=== PATIENT | male | born 1960 | race Caucasian/White ===

== ENCOUNTER 2020-11-03 13:18 | Emergency (ER) | payer OTHER, SELFPAY ==
--- NOTE | 2020-11-03 13:36 | ECG_ITS ---
Test Reason : SEIZURE Blood Pressure : / mmHG Vent. Rate : 077 BPM Atrial Rate : 077 BPM P-R Int : 192 ms QRS Dur : 082 ms QT Int : 370 ms P-R-T Axes : 051 037 040 degrees QTc Int : 418 ms Normal sinus rhythm Normal ECG When compared with ECG of 21-NOV-2017 10:41, No significant change was found Referred By: Robin Gonzalez Electronically Signed By:Oscar Pappas
[2020-11-03 13:50] VITALS: BP 137/92; PULSE 70; RESP 14; TEMP 36.6; O2SAT 95; BMI 26.9
--- NOTE | 2020-11-03 14:06 | CT_ITS ---
EXAMINATION: CTA OF THE HEAD AND NECK CLINICAL INFORMATION: Left leg weakness after seizure. COMPARISON: CT angiogram from 11/20/2017. TECHNIQUE: Test bolus sequences followed by intravenous administration 85 mL of Omnipaque 350. Helical imaging was performed in the axial plane from the mediastinum to the skull vertex. Delayed postcontrast imaging of the head was also performed. The data was processed at the chief technologist's workstation for generation of MIP sequences. Three-dimensional volume rendered reformatted images were also generated at an offline 3-D workstation. Stenoses are assessed in accordance with NASCET criteria unless otherwise indicated. This CT examination was performed using dose optimization techniques as appropriate, variously including the following: *Automated exposure control *Adjustment of mA and/or kV according to patient size (this includes techniques or standardized protocols for targeted exams where dose is matched to indication/reason for exam; i.e. extremities or head) *Use of iterative reconstruction technique DLP: 1808 mGy-cm. FINDINGS: CTA neck: The imaged aortic arch and origins of the great vessels are patent. The common carotid arteries are widely patent. Mild scattered atherosclerotic wall calcifications visible. The carotid bifurcations are otherwise normal. The cervical internal carotid arteries are normal in caliber. The vertebral arteries opacify normally and are of normal caliber. The soft tissues of the neck are unremarkable. Retention cyst again visible in the right maxillary antrum. The imaged portions of the lungs are clear. CTA head: The intradural vertebral arteries and basilar artery are normal. The posterior cerebral arteries are widely patent. The internal carotid arteries are of normal caliber. The JASKARAN and MCA vascular complexes bilaterally are normal. The venous sinuses opacify normally. No abnormal parenchymal or leptomeningeal enhancement. CT/CT angio head neck stroke IMPRESSION: Normal CT angiogram of the head and neck. Imaging findings reported to SENA Gonzalez at 2:48 PM on 11/03/2020.
--- NOTE | 2020-11-03 14:06 | CT_ITS ---
EXAMINATION: CT HEAD WITHOUT CONTRAST (STROKE PROTOCOL) CLINICAL INFORMATION: Stroke protocol. Left leg weakness after seizure. COMPARISON: None TECHNIQUE: Contiguous axial imaging was performed from the skull base to vertex without intravenous administration of contrast. This CT examination was performed using dose optimization techniques as appropriate, variously including the following: *Automated exposure control *Adjustment of mA and/or kV according to patient size (this includes techniques or standardized protocols for targeted exams where dose is matched to indication/reason for exam; i.e. extremities or head) *Use of iterative reconstruction technique DLP: 783 mGy-cm FINDINGS: There is no intracranial hemorrhage, hematoma, or extra-axial fluid collection. The ventricles are normal in size. There is no hydrocephalus, edema, or mass effect. The meek-white matter differentiation appears symmetric. There is no acute infarct or mass lesion. The calvarium appears intact. There is no pneumocephalus or orbital emphysema. There is a moderate-sized polyp or retention cyst right maxillary sinus. Rest of the paranasal sinuses and mastoid air cells are well-aerated. There is no scalp soft tissue abnormality seen. No calvarial fracture seen. CT/CT head for stroke IMPRESSION: No acute intracranial process seen. Moderate-sized polyp or retention cyst right maxillary sinus. Results called to Dr. Carlos Kelly in ED by phone at 2:24 PM.
--- NOTE | 2020-11-03 14:07 | ED.SEIZURE ---
HPI - Seizure General Chief Complaint: Seizure Stated Complaint: seizure Time Seen by Provider: 11/03/20 14:06 Source: patient Mode of arrival: ambulatory Limitations: no limitations History of Present Illness HPI Narrative: Patient presents to ED for seizure. Patient had a witnessed seizure at home around 01:00 o'clock. Patient states since having seizure she has had left leg weakness on left arm tingling. Patient states history of seizure, but never had crisis after having a seizure. Patient recently diagnosed with COVID on the 1st of this month, but denies having any COVID/viral syndrome. MD complaint: seizure Related Data Allergies Allergy/AdvReac Type Severity Reaction Status Date / Time No Known Allergies Allergy Verified 11/03/20 13:54 Review of Systems Review of Systems: Yes all other systems are reviewed and are negative Constitutional: Constitutional: Reports as per HPI and Reports no additional constitutional complaints Eyes: Eyes: Reports as per HPI and Reports no additional eye complaints ENT: Reports system reviewed and no additional complaints, except as documented and Reports as per HPI Cardiovascular: Cardiovascular: Reports as per HPI and Reports no additional cardiovascular complaints Respiratory: Respiratory: Reports as per HPI and Reports no additional respiratory complaints Gastrointestinal: Gastrointestinal: Reports as per HPI and Reports no additional gastrointestinal complaints Musculoskeletal: Musculoskeletal: Reports no additional musculoskeletal complaints and Reports as per HPI Comments: Left leg weakness to see Neurologic: Reports system reviewed and no additional complaints, except as documented and Reports as per HPI Comments: Seizure. Psychiatric: Psychiatric: Reports no additional psychiatric complaints and Reports as per HPI [facility] Past Medical History Medical History (Updated 11/04/20 @ 00:00 by Background Daemon) Asthma H/O myocardial infarction, greater than 8 weeks Pacemaker Social History Social History Smoking Status: Former smoker Use of substances other than those prescribed or required for medical reasons: No Advance Directives: No Advance Directives Information Provided: No Physical Exam Vital Signs: Vital Signs: Last Vital Signs Temp 97.9 F 11/03/20 13:50 Pulse 68 11/03/20 17:59 Resp 24 H 11/03/20 16:29 BP 125/81 11/03/20 17:59 Pulse Ox 98 11/03/20 17:59 Body Mass Index 26.9 Const: General: cooperative, healthy appearing, comfortable, no acute distress, well developed, alert and awake Orientation/consciousness: patient oriented x3 HENMT: Head: Yes normal to inspection and Yes No palpable skull fracture present Eyes: General: appearance normal, both eyes and all related structures Neck: Neck: Yes normal visual inspection, Yes full ROM, Yes no lymphadenopathy, Yes no meningeal signs, Yes trachea midline, Yes supple and No tender Chest: Chest palpation & inspection: normal inspection of the chest and normal palpation of entire chest wall Resp: Effort & Inspection: normal respiratory effort and able to speak in complete sentences Auscultation: clear to auscultation bilaterally Cardio: Jugular venous distension: no JVD Heart sounds: S1 normal heart sound present and S2 normal heart sound present GI: Inspection: Yes normal to inspection Palpation (GI): Soft to palpation, not firm, nontender, no guarding and not rigid : General: No CVA tenderness Back/Spine/Pelvis: Back: no CVA tenderness, No CVA tenderness and No back tenderness Skin: General skin exam: no rashes or lesions noted and elasticity normal Neuro: Other: Negative facial droop. Negative pronator drift. Speech is normal. Upper extremities has equal strength 5+. Lower extremities left leg significantly more less than right. Right leg strength 5+ left leg strength 3+. General: patient oriented x3, no meningeal signs and CN's II-XI intact bilaterally Cranial nerves: Yes CN's II-XII intact bilaterally NIH Stroke Scale Level of Consciousness: Alert Level of Consciousness Questions: Answers both questions correctly Level of Consciousness Commands: Performs both tasks correctly Best Gaze: Normal Visual: No visual loss Facial Palsy: Normal Motor Arm (Right): No drift Motor Arm (Left): No drift Motor Leg (Right): No drift Motor Leg (Left): Some effort against gravity Limb Ataxia: Absent Sensory: Normal Best Language: No aphasia Dysarthia: Normal Extinction and Inattention: No abnormality Score: 2 Course Course Course Narrative: Most likely patient having Juan's paralysis, but due to patient being COVID positive this may be a stroke caused by COVID-19. Case discussed with Dr. Guevara and she states to call a stroke protocol and talk to neurology. NIH score 2. Head CTA and head CT sent. Reevaluation(s) Reevaluation #1: Spoke with Dr. Calvillo and he was informed of patient's history and physical exam and also imaging results. He states do not give patient tPA and just admit for observation. He was made aware patient has COVID-19 and he does not believe this is a stroke presently, but he believes patient should be admitted for observation due covid-19 diagnosis which puts him at high risk of developing a stroke. He does state give patient aspirin. Patient's head CT a and head CT were both negative for stroke. Time: 15:42 Reevaluation #2: Patient is signing against medical advice. Patient no longer wants to be admitted. Patient explained neurology wanted him to be admitted for observation, but patient still refused. Patient explained risk of possibility of still having stroke in the near future and I rather patient be seen by Neurology in the morning, but patient refused. Patient informed possibility of disability, , stroke, decrease activity of life, but patient still would like to sign out against medical advice. Patient states he was see his neurologist in the morning. Patient states his called and spoke to his neurologist and he was see his neurologist in the morning. Upon re-evaluation patient no longer has left lower leg weakness. Patient walked out the ED with normal gait. Time: 17:28 MDM - Seizure MDM Narrative Medical decision making narrative: Seizure Lab Data Result diagrams: 11/03/20 14:46 11/03/20 14:46 Labs: Lab Results 11/03/20 11/03/20 11/03/20 Range/Units 14:37 14:41 14:46 WBC 6.5 (4.8-10.8) X10*3/uL RBC 5.04 (4.60-5.80) X10*6/uL Hgb 14.7 (14.0-18.0) g/dl Hct 44.4 (42-52) % MCV 88.1 (80-98) fL MCH 29.2 (27.0-33.0) pg MCHC 33.1 (31.0-36.0) g/dl RDW 12.7 (11.0-16.0) % Plt Count 171 (160-400) X10*3/uL MPV 10.4 (9.4-12.4) fL Immature Gran % (Auto) 0.9 H (0.0-0.4) % Neut % (Auto) 67.1 (45-73) % Lymph % (Auto) 21.4 (20-40) % Levy % (Auto) 8.6 (2-11) % Eos % (Auto) 1.7 (0-4) % Baso % (Auto) 0.3 (0-2) % Lymph # (Auto) 1.4 (1.2-4.9) X10*3/uL Levy # (Auto) 0.6 (0.1-1.2) X10*3/uL Eos # (Auto) 0.1 (0.0-0.4) X10*3/uL Baso # (Auto) 0.0 (0.0-0.2) X10*3/uL Abs Immat Gran (auto) 0.06 H (0.00-0.03) X10*3/uL Absolute Neuts (auto) 4.4 (2.0-8.3) X10*3/uL Absolute Nucleated RBC 0.000 (0.0-0.012) X10*3/uL Nucleated RBC % (auto) 0.0 (0.0-0.2) /100WBC PT (10.8-13.0) SEC Whole Blood PT 11.4 (11.1-13.5) sec INR (0.9-1.1) Whole Blood INR 1.0 (0.9-1.1) APTT (24.1-38.0) SEC Sodium (135-145) mmol/L Potassium (3.3-5.1) mmol/l Chloride (96-108) mmol/L Carbon Dioxide (22-29) mmol/L Anion Gap (12-20) BUN (9-16) mg/dL Creatinine (0.5-1.4) mg/dL Estim Creat Clear Calc Estimated GFR POC Glucose 123 H (60-115) mg/dL Random Glucose (60-115) mg/dL Calcium (8.4-10.2) mg/dL Magnesium (1.6-2.6) mg/dL Total Bilirubin (0.0-1.0) mg/dL AST (5-37) U/L ALT (0-40) U/L Alkaline Phosphatase (39-117) U/L Troponin I High Sens (<3.5-35.0) ng/L Total Protein (6.5-8.0) g/dL Albumin (3.5-5.0) g/dL Urine Color Urine Appearance Urine pH (5.0-8.0) Ur Specific Tullos (1.005-1.025) Urine Protein (NEG-TRACE) MG/DL Urine Glucose (UA) (NEG) MG/DL Urine Ketones (NEG) MG/DL Urine Blood (NEG) Urine Nitrite (NEG) Ur Leukocyte Esterase (NEG) 11/03/20 11/03/20 11/03/20 Range/Units 14:46 14:46 14:46 WBC (4.8-10.8) X10*3/uL RBC (4.60-5.80) X10*6/uL Hgb (14.0-18.0) g/dl Hct (42-52) % MCV (80-98) fL MCH (27.0-33.0) pg MCHC (31.0-36.0) g/dl RDW (11.0-16.0) % Plt Count (160-400) X10*3/uL MPV (9.4-12.4) fL Immature Gran % (Auto) (0.0-0.4) % Neut % (Auto) (45-73) % Lymph % (Auto) (20-40) % Levy % (Auto) (2-11) % Eos % (Auto) (0-4) % Baso % (Auto) (0-2) % Lymph # (Auto) (1.2-4.9) X10*3/uL Levy # (Auto) (0.1-1.2) X10*3/uL Eos # (Auto) (0.0-0.4) X10*3/uL Baso # (Auto) (0.0-0.2) X10*3/uL Abs Immat Gran (auto) (0.00-0.03) X10*3/uL Absolute Neuts (auto) (2.0-8.3) X10*3/uL Absolute Nucleated RBC (0.0-0.012) X10*3/uL Nucleated RBC % (auto) (0.0-0.2) /100WBC PT 12.0 (10.8-13.0) SEC Whole Blood PT (11.1-13.5) sec INR 1.0 (0.9-1.1) Whole Blood INR (0.9-1.1) APTT 39.2 H (24.1-38.0) SEC Sodium 137 (135-145) mmol/L Potassium 4.4 (3.3-5.1) mmol/l Chloride 101 (96-108) mmol/L Carbon Dioxide 25 (22-29) mmol/L Anion Gap 15 (12-20) BUN 22 H (9-16) mg/dL Creatinine 0.88 (0.5-1.4) mg/dL Estim Creat Clear Calc 105.0 Estimated GFR > 60 POC Glucose (60-115) mg/dL Random Glucose 113 (60-115) mg/dL Calcium 9.2 (8.4-10.2) mg/dL Magnesium 2.2 (1.6-2.6) mg/dL Total Bilirubin 0.4 (0.0-1.0) mg/dL AST 20 (5-37) U/L ALT 37 (0-40) U/L Alkaline Phosphatase 94 (39-117) U/L Troponin I High Sens < 3.5 (<3.5-35.0) ng/L Total Protein 7.5 (6.5-8.0) g/dL Albumin 4.8 (3.5-5.0) g/dL Urine Color Urine Appearance Urine pH (5.0-8.0) Ur Specific Tullos (1.005-1.025) Urine Protein (NEG-TRACE) MG/DL Urine Glucose (UA) (NEG) MG/DL Urine Ketones (NEG) MG/DL Urine Blood (NEG) Urine Nitrite (NEG) Ur Leukocyte Esterase (NEG) 11/03/20 Range/Units 14:46 WBC (4.8-10.8) X10*3/uL RBC (4.60-5.80) X10*6/uL Hgb (14.0-18.0) g/dl Hct (42-52) % MCV (80-98) fL MCH (27.0-33.0) pg MCHC (31.0-36.0) g/dl RDW (11.0-16.0) % Plt Count (160-400) X10*3/uL MPV (9.4-12.4) fL Immature Gran % (Auto) (0.0-0.4) % Neut % (Auto) (45-73) % Lymph % (Auto) (20-40) % Levy % (Auto) (2-11) % Eos % (Auto) (0-4) % Baso % (Auto) (0-2) % Lymph # (Auto) (1.2-4.9) X10*3/uL Levy # (Auto) (0.1-1.2) X10*3/uL Eos # (Auto) (0.0-0.4) X10*3/uL Baso # (Auto) (0.0-0.2) X10*3/uL Abs Immat Gran (auto) (0.00-0.03) X10*3/uL Absolute Neuts (auto) (2.0-8.3) X10*3/uL Absolute Nucleated RBC (0.0-0.012) X10*3/uL Nucleated RBC % (auto) (0.0-0.2) /100WBC PT (10.8-13.0) SEC Whole Blood PT (11.1-13.5) sec INR (0.9-1.1) Whole Blood INR (0.9-1.1) APTT (24.1-38.0) SEC Sodium (135-145) mmol/L Potassium (3.3-5.1) mmol/l Chloride (96-108) mmol/L Carbon Dioxide (22-29) mmol/L Anion Gap (12-20) BUN (9-16) mg/dL Creatinine (0.5-1.4) mg/dL Estim Creat Clear Calc Estimated GFR POC Glucose (60-115) mg/dL Random Glucose (60-115) mg/dL Calcium (8.4-10.2) mg/dL Magnesium (1.6-2.6) mg/dL Total Bilirubin (0.0-1.0) mg/dL AST (5-37) U/L ALT (0-40) U/L Alkaline Phosphatase (39-117) U/L Troponin I High Sens (<3.5-35.0) ng/L Total Protein (6.5-8.0) g/dL Albumin (3.5-5.0) g/dL Urine Color YELLOW Urine Appearance CLEAR Urine pH 6.0 (5.0-8.0) Ur Specific Tullos 1.015 (1.005-1.025) Urine Protein NEG (NEG-TRACE) MG/DL Urine Glucose (UA) NEG (NEG) MG/DL Urine Ketones NEG (NEG) MG/DL Urine Blood NEG (NEG) Urine Nitrite NEG (NEG) Ur Leukocyte Esterase NEG (NEG) ECG Data Interpretation: Normal sinus rhythm. Ventricular rate 77. IA interval 192. QRS 82. QTC 418. Normal EKG. Negative STEMI. Discharge Plan Discharge Clinical Impression: Generalized seizure Patient Disposition: Left Against Medical Advice Instructions: Recurrent Seizures in Adults (ED) Additional Instructions: Return to the ED immediately for any slurred speech, loss of vision, chest pain, headache, dizziness, shortness of breath, paralysis of extremities, weakness, or any other concerning symptoms. Referrals: Jeff Yepez MD [Physician] - 2 days (Seizure with new onset left lower extremity that resolved during ED visit. Known COVID. Differential was Juan's paralysis versus TIA.) Stand Alone Forms: Against Medical Advice Interventions: ED Discharge Assessment Last Done: 11/03/20 18:20 Discharge Date/Time: 11/03/20 18:22 Print Language: Hebrew
[2020-11-03] MEDS: iohexoL 350 MG/ML 100 ML INFUS..BTL 85 ML IV (14:32)
[2020-11-03] MEDS: 0.9 % Sodium Chloride 1,000 ML 999 ML IV (14:47)
[2020-11-03 14:53] LABS: MANUAL DIFF FLAG NO
[2020-11-03 14:54] LABS: Basophils Percent Auto 0.3 % (0-2); Eosinophils Absolute Auto 0.1 X10*3/uL (0.0-0.4); Eosinophils Percent Auto 1.7 % (0-4); Hematocrit 44.4 % (42-52); Hemoglobin 14.7 g/dl (14.0-18.0); Imm Gran Abs Auto 0.06 X10*3/uL (0.00-0.03); Imm Gran Pct Auto 0.9 % (0.0-0.4); Lymphocytes Absolute Auto 1.4 X10*3/uL (1.2-4.9); Lymphocytes Percent Auto 21.4 % (20-40); Mean Corpuscular HGB Conc 33.1 g/dl (31.0-36.0); Mean Corpuscular Hemoglobin 29.2 pg (27.0-33.0); Mean Corpuscular Volume 88.1 fL (80-98); Mean Platelet Volume 10.4 fL (9.4-12.4); Monocytes Absolute Auto 0.6 X10*3/uL (0.1-1.2); Monocytes Percent Auto 8.6 % (2-11); Neutrophils Absolute Auto 4.4 X10*3/uL (2.0-8.3); Neutrophils Percent Auto 67.1 % (45-73); Platelet Count 171 X10*3/uL (160-400); Red Blood Count 5.04 X10*6/uL (4.60-5.80); Red Cell Distribution Width 12.7 % (11.0-16.0); White Blood Count 6.5 X10*3/uL (4.8-10.8)
--- NOTE | 2020-11-03 14:54 | PC.NURSE ---
pt arrives via ems following apprx 10 min long, witnessed, grand mal seizure. hx seizures, compliant with antiepileptics at home. last seizure in august.
[2020-11-03 14:56] LABS: Prothrombin Time Whole Bld POC 11.4 sec (11.1-13.5)
[2020-11-03 14:58] LABS: Glucose, Whole Blood 123 mg/dL (60-115)
[2020-11-03 15:03] LABS: Partial Thromboplastin Time 39.2 SEC (24.1-38.0)
[2020-11-03 15:14] LABS: Glucose Urine UA NEG (NEG); Leukocyte Esterase Urine NEG (NEG); Nitrite Urine NEG (NEG); Specific Gravity - Urine 1.015 (1.005-1.025); Stroke Lab Use COMPLETE; Urine Blood NEG (NEG); Urine Ketones NEG (NEG); Urine Protein NEG (NEG-TRACE)
[2020-11-03 15:16] LABS: Appearance Urine CLEAR; Color Urine YELLOW
[2020-11-03 15:17] LABS: Alanine Aminotransferase 37 U/L (0-40); Albumin Level 4.8 g/dL (3.5-5.0); Alkaline Phosphatase 94 U/L (39-117); Anion Gap 15 (12-20); Aspartate Amino Transferase 20 U/L (5-37); Bilirubin Total 0.4 mg/dL (0.0-1.0); Blood Urea Nitrogen 22 mg/dL (9-16); Calcium 9.2 mg/dL (8.4-10.2); Carbon Dioxide 25 mmol/L (22-29); Chloride 101 mmol/L (96-108); Estimated Glomerular Filt Rate > 60; Glucose Random 113 mg/dL (60-115); Magnesium 2.2 mg/dL (1.6-2.6); Potassium 4.4 mmol/l (3.3-5.1); Sodium 137 mmol/L (135-145); Total Protein 7.5 g/dL (6.5-8.0)
[2020-11-03 15:21] LABS: Troponin-I High Sensitivity < 3.5 ng/L (<3.5-35.0)
[2020-11-03 16:29] VITALS: BP 140/92; PULSE 84; RESP 24; O2SAT 95
--- NOTE | 2020-11-03 16:34 | PC.NURSE ---
PT CURRENTLY REPORTING ALL TINGLING SENSATION AND PARALYSIS RESOLVED. A&OX4 AND NO SEIZURE ACTIVITY SINCE ARRIVAL. RESTING COMFORTABLY AT THIS TIME. VS WNL, NEUROS INTACT.
[2020-11-03] MEDS: Aspirin 81 MG TAB.CHEW PO (16:36)
[2020-11-03 17:59] VITALS: BP 125/81; PULSE 68; O2SAT 98
== END 2020-11-03 18:22 | disposition left against medical advice (07) ==
PROVIDERS: Physician Assistant; Emergency Provider Internal Medicine; PCP Internal Medicine
DX: R56.9 Unspecified convulsions (principal); R29.702 NIHSS score 2; Z87.891 Personal history of nicotine dependence; Z86.16 Personal history of COVID-19; Z79.899 Other long term (current) drug therapy
CPT/HCPCS: 36415; 70450; 70496; 70498; 80053; 81003; 82947; 83735; 84484; 85025; 85610; 85730; 93005; 96360; 99284; Q9967

== ENCOUNTER 2022-03-20 18:21 | Emergency (ER) | payer OTHER, SELFPAY ==
--- NOTE | ~2022-03-20 | CT_ITS ---
EXAMINATION: CT HEAD WITHOUT CONTRAST CT CERVICAL SPINE WITHOUT CONTRAST CLINICAL INFORMATION: 61-year-old male, following trauma evaluation COMPARISON: 11/03/2020 TECHNIQUE: CT of the head and cervical spine were performed without intravenous contrast. Multiplanar reformats were rendered and reviewed. This CT examination was performed using dose optimization techniques as appropriate, variously including the following: *Automated exposure control *Adjustment of mA and/or kV according to patient size (this includes techniques or standardized protocols for targeted exams where dose is matched to indication/reason for exam; i.e. extremities or head) *Use of iterative reconstruction technique DLP: 1460 mGy-cm. FINDINGS: CT head: No intracranial hemorrhage, large infarction, or mass lesion is seen. No extra-axial collection is appreciated. The ventricles are normal in size and configuration without evidence of hydrocephalus. Visualized paranasal sinuses reveal mucosal thickening, frontal sinuses, ethmoidal sinuses, ostiomeatal complexes of maxillary sinuses with mucous retention cysts seen bilaterally. And mucosal thickening of sphenoid sinus. Mastoids are well aerated. CT cervical spine: The cervical alignment is normal. The craniocervical junction is normal. The vertebral body heights are maintained. No cervical spine fracture is seen. There are mild degenerative changes with marginal spurring and mild narrowing cough C5-C6 and C6-C7 intervertebral disc spaces. The paraspinal soft tissues are within normal limits. The partially imaged lung apices are clear. CT/CT head/brain wo con IMPRESSION: CT head: No acute intracranial finding. Pansinusitis CT cervical spine: No cervical spine fracture or traumatic malalignment identified. Mild degenerative changes
--- NOTE | ~2022-03-20 | CT_ITS ---
EXAMINATION: CT HEAD WITHOUT CONTRAST CT CERVICAL SPINE WITHOUT CONTRAST CLINICAL INFORMATION: 61-year-old male, following trauma evaluation COMPARISON: 11/03/2020 TECHNIQUE: CT of the head and cervical spine were performed without intravenous contrast. Multiplanar reformats were rendered and reviewed. This CT examination was performed using dose optimization techniques as appropriate, variously including the following: *Automated exposure control *Adjustment of mA and/or kV according to patient size (this includes techniques or standardized protocols for targeted exams where dose is matched to indication/reason for exam; i.e. extremities or head) *Use of iterative reconstruction technique DLP: 1460 mGy-cm. FINDINGS: CT head: No intracranial hemorrhage, large infarction, or mass lesion is seen. No extra-axial collection is appreciated. The ventricles are normal in size and configuration without evidence of hydrocephalus. Visualized paranasal sinuses reveal mucosal thickening, frontal sinuses, ethmoidal sinuses, ostiomeatal complexes of maxillary sinuses with mucous retention cysts seen bilaterally. And mucosal thickening of sphenoid sinus. Mastoids are well aerated. CT cervical spine: The cervical alignment is normal. The craniocervical junction is normal. The vertebral body heights are maintained. No cervical spine fracture is seen. There are mild degenerative changes with marginal spurring and mild narrowing cough C5-C6 and C6-C7 intervertebral disc spaces. The paraspinal soft tissues are within normal limits. The partially imaged lung apices are clear. CT/CT cervical spine wo con IMPRESSION: CT head: No acute intracranial finding. Pansinusitis CT cervical spine: No cervical spine fracture or traumatic malalignment identified. Mild degenerative changes
--- NOTE | ~2022-03-20 | XR_ITS ---
EXAMINATION: CHEST AND LEFT RIBS. CLINICAL INFORMATION: Trauma left with left chest pain COMPARISON: None TECHNIQUE: Chest 2 views. Left RIBS 4 views. FINDINGS: Chest: Both lungs are fairly well-expanded and clear of acute process. Heart size and pulmonary vascularity is normal. There are dual pacer electrodes in right atrium and right ventricle. Left RIBS: Multiple views of left ribs reveal no visible fracture or bony abnormality. XR/XR chest 2V IMPRESSION: Unremarkable chest exam. Multiple views of left ribs reveal no visible fracture or bony abnormality.
--- NOTE | ~2022-03-20 | XR_ITS ---
EXAMINATION: CHEST AND LEFT RIBS. CLINICAL INFORMATION: Trauma left with left chest pain COMPARISON: None TECHNIQUE: Chest 2 views. Left RIBS 4 views. FINDINGS: Chest: Both lungs are fairly well-expanded and clear of acute process. Heart size and pulmonary vascularity is normal. There are dual pacer electrodes in right atrium and right ventricle. Left RIBS: Multiple views of left ribs reveal no visible fracture or bony abnormality. XR/XR ribs LT 2V IMPRESSION: Unremarkable chest exam. Multiple views of left ribs reveal no visible fracture or bony abnormality.
[2022-03-20 18:36] VITALS: BP 128/84; BP 154/92; PULSE 66; PULSE 88; RESP 18; TEMP 37.1; O2SAT 100; O2SAT 97; BMI 29.4
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
[2022-03-20 21:11] VITALS: BP 128/88; PULSE 76; RESP 16; TEMP 36.7; O2SAT 98
[2022-03-20 21:30] VITALS: BP 132/89; PULSE 80; TEMP 36.6; O2SAT 98
[2022-03-20] MEDS: Ketorolac Tromethamine 60 MG/2 ML VIAL IM (22:34)
[2022-03-20 22:36] VITALS: BP 136/88; PULSE 76; RESP 18
== END 2022-03-20 22:38 | disposition home or self-care (01) ==
PROVIDERS: Emergency Provider Emergency Medicine; PCP Internal Medicine
DX: S09.90XA Unspecified injury of head, initial encounter (principal); S20.212A Contusion of left front wall of thorax, initial encounter; V13.4XXA Pedal cycle driver injured in collision with car, pick-up truck or van in traffic accident, initial encounter; Y93.55 Activity, bike riding; Y92.414 Local residential or business street as the place of occurrence of the external cause; Y99.9 Unspecified external cause status
CPT/HCPCS: 70450; 71046; 71100; 72125; 96372; 99283; 99284; J1885

== ENCOUNTER 2022-04-23 08:51 | Emergency (ER) | payer OTHER, SELFPAY ==
--- NOTE | ~2022-04-23 | XR_ITS ---
EXAMINATION: XR HIP, LEFT CLINICAL INFORMATION: Left hip pain COMPARISON: X-ray 11/20/2017 TECHNIQUE: 6 images of the left hip and the left femur, 6 FINDINGS: Postsurgical changes, with the hardware comprised of intramedullary nail in the femur, 2 screws extending into the femoral head, distal locking screw. Hardware is intact. Left hip joint space is maintained. No evidence of acute fracture or dislocation. No acute fracture or malalignment is seen of the femur. Partially visualized proximal tibia and fibula appear intact. Hardware projected over the lumbosacral junction. The visualized left hemipelvis appears intact. XR/XR hip LT min 2V IMPRESSION: Status post-ORIF, with orthopedic hardware in the femur. No evidence of hardware failure. No evidence of acute fracture, dislocation or malalignment.
[2022-04-23 08:56] VITALS: BP 152/79; PULSE 70; RESP 20; TEMP 36.4; O2SAT 98; BMI 27.6
--- NOTE | 2022-04-23 09:21 | ED.GENADULT ---
HPI - General Adult General Chief complaint: Extremity Injury, Lower Stated complaint: L hip pain Time Seen by Provider: 04/23/22 09:21 Source: patient Mode of arrival: ambulatory Limitations: no limitations History of Present Illness HPI narrative: Patient is a 62 year old male presenting to the emergency department today with left hip pain. Patient states that he had his left hip replaced 10 years ago and yesterday, he woke up with pain in his left hip. Patient denies any dizziness, lightheadedness, abdominal pain, nausea, vomiting, fever, chills, blurry vision, double vision, loss of vision, chest pain, difficulty breathing, shortness of breath, back pain, night sweats, pain with urination, increased urinary frequency, increased urinary urgency, blood in his urine or stool, syncope or a near syncopal episode, recent trauma or falls, bowel incontinence, bladder incontinence, bowel retention, bladder retention, or any other complaints at this time. Onset (ago): day(s) (1) Location: left and lower extremity (hip) Radiation: non-radiation Severity: mild Severity scale (1-10): 3 Quality: dull Pain Consistency: constant Relieving factors: none Exacerbating factors: movement Associated symptoms: denies other symptoms Treatments prior to arrival: none Related Data Previous Rx's Medication Instructions Recorded naproxen 500 mg tablet (Naprosyn) 500 mg PO BID #20 tabs 03/20/22 cyclobenzaprine 10 mg tablet 5 mg PO TID PRN hip pain 7 days 04/23/22 #21 tabs Allergies Allergy/AdvReac Type Severity Reaction Status Date / Time No Known Allergies Allergy Verified 11/03/20 13:54 Review of Systems Constitutional: Constitutional: Reports no additional constitutional complaints, Denies chills, Denies fever(s) and Denies night sweats Eyes: Eyes: Reports no additional eye complaints, Denies blurry vision, Denies change in vision, Denies diplopia, Denies eye discharge, Denies loss of vision and Denies eye pain ENT: Denies dizziness Cardiovascular: Cardiovascular: Reports no additional cardiovascular complaints, Denies chest pain, Denies lightheadedness, Denies Loss of Consciousness and Denies dyspnea Respiratory: Respiratory: Reports no additional respiratory complaints and Denies dyspnea Gastrointestinal: Gastrointestinal: Reports no additional gastrointestinal complaints, Denies abdominal pain, Denies melena, Denies hematochezia, Denies change in bowel habits and Denies change in stool character Genitourinary: Genitourinary: Reports no additional male genitourinary complaints, Denies hematuria, Denies oliguria, Denies difficulty urinating, Denies dysuria, Denies urinary frequency, Denies urinary hesitancy, Denies urinary incontinence and Denies urinary urgency Musculoskeletal: Musculoskeletal: Reports no additional musculoskeletal complaints, Denies numbness and Denies tingling Comments: left hip pain Neurologic: Denies dizziness, Denies loss of vision, Denies numbness and Denies tingling Psychiatric: Psychiatric: Reports no additional psychiatric complaints Endocrine: Endocrine: Reports no additional endocrine complaints Hematologic/Lymphatic: Hematologic/Lymphatic: Reports no additional hematologic/lymphatic complaints Allergic/Immunologic: Allergic/Immunologic: Reports no additional allergic/immunologic complaints PMFSH Past Medical History Attestation statement: The following information was validated with the patient. Source: old records reviewed Medical History Asthma H/O myocardial infarction, greater than 8 weeks Pacemaker Social History Social History Advance Directives: Yes Advance Directives Information Provided: Yes Advance Directives on File: No Physical Exam ED Vital Signs: Vital Signs - 24 hr 04/23/22 08:56 Temperature 97.5 F Pulse Rate 70 Respiratory Rate 20 Blood Pressure 152/79 H Pulse Oximetry 98 Oxygen Delivery Method Room Air BMI result Body Mass Index 27.6 Const General: cooperative, no acute distress, alert and awake Nutritional Appearance: well nourished Orientation/consciousness: patient oriented x3 Limitations: no limitations [facility] Head: Yes normal to inspection and Yes atraumatic Ears: hearing grossly normal bilaterally and external ears normal General nose exam: Normal external nose present, no nasal discharge noted and no epistaxis Face and sinus: Yes normal facial exam, No abrasion and No laceration Mouth: Normal oral and palatal mucosa present, no drooling and no muffled voice Eyes General: appearance normal, both eyes and all related structures Periorbital: periorbital findings normal Eyelids: Yes eyelids normal Conjunctivae: conjunctivae normal Pupils: Equal, round and reactive pupils present EOM: EOMs intact bilaterally Neck Neck: Yes normal visual inspection, Yes full ROM and Yes no lymphadenopathy Chest Chest palpation & inspection: normal inspection of the chest Resp Effort & Inspection: normal respiratory effort and able to speak in complete sentences Auscultation: clear to auscultation bilaterally Cardio Rate: regular rate Rhythm: regular rhythm GI Inspection: Yes normal to inspection Neuro General: patient oriented x3 and moves all extremities Cranial nerves: Yes Equal, round and reactive pupils present Cognition (Neuro): normal cognition Motor exam (neuro): 5/5 motor strength present throughout Sensory Exam: Normal double simultaneous stimulation for sensation Coordination: [id number] test normal Extrem Other: pain with left hip abduction General: Yes normal to inspection and Yes capillary refill normal Psych Appearance: grossly normal Mental Status: mental status grossly normal Affect: normal affect Attitude: cooperative Thought process: Normal thought process present Thought content: Normal thought content present Insight: Good insight present (Psych) Medical Decision Making MDM Narrative Medical decision making narrative: Patient is a 62 year old male presenting to the emergency department today with left hip pain. Patient's physical exam showed pain with left hip abducion but was otherwise unremarkable. Patient's left hip x-ray showed no acute process. I explained my physical exam findings as well as all test results to the patient. I answered all questions asked by the patient. Patient received PO Flexeril which he stated helped his pain significantly. I stressed the importance of the patient taking his medication as prescribed. I stressed the importance of the patient following up with his primary care provider and an dispute specialist. I stressed the importance of the patient returning to the emergency department immediately if his symptoms were to worsen or if he were to develop any dizziness, shortness of breath, difficulty breathing, chest pain, blurry vision, loss of vision, nausea, vomiting, abdominal pain, fever, chills, back pain, or any other complaints. Patient verbalized agreement and understanding with this treatment plan and discharge. Differential Diagnosis Differential Diagnosis: left hip pain, left hip arthritis Medical Records Medical records reviewed: Yes I reviewed the patient's medical records. Imaging Data Left hip x-ray: Attestation: I personally reviewed and interpreted this imaging study as follows: My impression: No acute process. Radiologist's impression: EXAMINATION: XR HIP, LEFT CLINICAL INFORMATION: Left hip pain COMPARISON: X-ray 11/20/2017 TECHNIQUE: 6 images of the left hip and the left femur, 6 FINDINGS: Postsurgical changes, with the hardware comprised of intramedullary nail in the femur, 2 screws extending into the femoral head, distal locking screw. Hardware is intact. Left hip joint space is maintained. No evidence of acute fracture or dislocation. No acute fracture or malalignment is seen of the femur. Partially visualized proximal tibia and fibula appear intact. Hardware projected over the lumbosacral junction. The visualized left hemipelvis appears intact. XR/XR hip LT min 2V IMPRESSION: Status post-ORIF, with orthopedic hardware in the femur. No evidence of hardware failure. No evidence of acute fracture, dislocation or malalignment. ? Dictated By: Herminio Cantu MD Signed By: Electronically signed by Herminio Cantu MD 04/23/22 1005 Discharge Plan Discharge Clinical Impression: Acute pain of left hip Patient Disposition: Home, Self-Care Instructions: Hip Pain (ED) Additional Instructions: Follow up with your primary care provider and an dispute specialist. Return to the emergency department immediately if your symptoms worsen or if you develop any dizziness, shortness of breath, difficulty breathing, chest pain, blurry vision, loss of vision, nausea, vomiting, abdominal pain, fever, chills, back pain, or any other complaints. Prescriptions: New cyclobenzaprine 10 mg tablet 5 mg PO TID PRN (Reason: hip pain) 7 Days Qty: 21 0RF No Action naproxen [Naprosyn] 500 mg tablet 500 mg PO BID Qty: 20 0RF Referrals: [facility] [Provider Group] (Call to establish and follow up with an dispute specialist. ) Carson Dutton MD [Primary Care Provider] - Stand Alone Forms: Work/School Release Interventions: ED Discharge Assessment Last Done: 04/23/22 10:30 Discharge Date/Time: 04/23/22 10:30 Print Language: Swiss
[2022-04-23] MEDS: Cyclobenzaprine HCl 5 MG TABLET PO (10:29)
== END 2022-04-23 10:30 | disposition home or self-care (01) ==
PROVIDERS: Emergency Provider Emergency Medicine Emergency Medical Services; PCP Internal Medicine
DX: T84.84XA Pain due to internal orthopedic prosthetic devices, implants and grafts, initial encounter (principal); Z96.642 Presence of left artificial hip joint; J45.909 Unspecified asthma, uncomplicated; I25.2 Old myocardial infarction; Z95.0 Presence of cardiac pacemaker
CPT/HCPCS: 73502; 99283

== ENCOUNTER → 2023-05-01 23:59 | Outpatient (BNV) | payer OTHER, SELFPAY ==
--- NOTE | 2023-05-08 10:55 | MHC.OFFVIS ---
Intake Intake Visit Reasons: Remote Device Check- Biotronik Allergies No Known Allergies Allergy (Verified 11/03/20 13:54) PFSH Medical History Asthma H/O myocardial infarction, greater than 8 weeks Pacemaker Social History Advance Directives: Yes Advance Directives Information Provided: Yes Advance Directives on File: No Office Procedures Cardiac Device Check Cardiac Device Check Details: Remote pacemaker report generated 05/01/2023. Pacemaker function is adequate [id number] Cardiac Device Interrogation, pacemaker Procedure code (CPT) selection complete Coding Level of Care Code Procedure Only Diagnoses CPT Codes Cardiac Device Check - Cardiac Device 12: [id number] Cardiac Device Interrogation, pacemaker ([id number])
== END ==
PROVIDERS: PCP Internal Medicine; Visit Provider Internal Medicine Cardiovascular Disease
DX: I50.20 Unspecified systolic (congestive) heart failure (principal); Z95.810 Presence of automatic (implantable) cardiac defibrillator
CPT/HCPCS: 93294

== ENCOUNTER 2023-06-25 12:58 | Outpatient (AMB) | payer OTHER, SELFPAY ==
--- NOTE | 2023-06-25 13:14 | A.OFFVIS_ITS ---
Intake Vital Signs 06/25/23 13:15 Height 6 ft 2 in Weight 216 lb 0.848 oz BMI 27.7 BP 120/82 Blood Pressure Location Lt brachial Position Sitting Pulse 74 Intake Visit Reasons: overdue biotronik and appt with ekg Intake Note: overdue biotronic and appt with ekg [employer] Required: No Allergies No Known Allergies Allergy (Verified 06/25/23 13:17) HPI overdue biotronik and appt with ekg HPI Details Chris is a 63-year-old male with past medical history of hypertension, hyperlipidemia, Biotronik dual-chamber pacemaker who presents for follow-up. His last prior visit to our office was 11/26/2019. Today he reports he has been doing very well in the last few years. He denies any hospitalizations, ER trips for cardiac reasons or changes to his health overall. 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 He is able to lift and throw hay lilibeth and tells me he feels like he is young. He has no chest discomfort at rest or with activity. No shortness of breath, palpitations, dizziness, presyncope, syncope, PND, orthopnea or edema. He is not taking any medications. He said over the years the pharmacy did not call him for refills. [facility] Medical History (Updated 06/25/23 @ 17:08 by Yessi Oneil, JESI-C) Asthma H/O myocardial infarction, greater than 8 weeks Pacemaker Social History Alcohol intake: current Alcohol intake frequency: holidays/special occasions only Patient Tobacco Use Status: Never used Tobacco Tobacco use type: Cigarette Review of Systems Const All systems reviewed & are unremarkable except as noted in HPI and below ENT Denies dizziness Card Denies chest pain, Denies chest pain at rest, Denies chest pain with activity, Denies rapid heart rate, Denies pedal edema, Denies edema, Denies leg edema, Denies lightheadedness, Denies palpitations, Denies dyspnea, Denies dyspnea on exertion and Denies orthopnea Resp Denies cough, Denies dyspnea and Denies dyspnea on exertion GI Denies hematochezia and Denies change in stool character Musc Denies abnormal gait, Denies limited range of motion, Denies muscle cramps, Denies muscle weakness, Denies numbness, Denies radiating pain into limb, Denies stiffness and Denies tingling Neuro Denies abnormal gait, Denies dizziness, Denies numbness and Denies tingling Endo Denies palpitations Physical Exam Vital Signs: Last Vital Signs Pulse 74 06/25/23 13:15 BP 120/82 06/25/23 13:15 BMI result Body Mass Index 27.7 Const General: cooperative, healthy appearing, comfortable and no acute distress Orientation/consciousness: patient oriented x3 Neck Neck: Yes normal visual inspection Resp Effort & Inspection: normal respiratory effort Auscultation: clear to auscultation bilaterally, no crackles, no rales, no rhonchi and no wheezes Cardio Jugular venous distension: no JVD Rate: regular rate Rhythm: regular rhythm Heart sounds: S1 normal heart sound present, S2 normal heart sound present, no murmurs and no rubs Neuro General: patient oriented x3 Extrem General: Yes normal to inspection and No no pedal edema Psych Appearance: grossly normal Mental Status: mental status grossly normal Speech and movement: Normal speech and movement present Office Procedures Cardiac Device Check Cardiac Device Check Details: Biotronik dual-chamber pacemaker interrogation today showing battery 5 years 1 month, DDD mode, low rate 60, right atrial threshold 0.8 volts at 0.4 milliseconds, RV threshold 1.1 volts at 0.4 milliseconds, no setting changes, episode of an SVT 07/2022 lasting for seconds, brief episodes of atrial tach/atrial flutter longest 4 minutes 05/2022, since then lasting only seconds. Atrial pacing 2% of time, ventricular pacing 0. [id number] Cardiac Device Check, pacemaker dual lead Procedure code (CPT) selection complete EKG Details: Today, read by me, normal sinus rhythm, no acute ST or T-wave abnormalities, rate 74, QTC 412 millisecond [id number], Complete Assessment & Plan Assessment & Plan (1) CAD (coronary artery disease): Code(s): I25.10 - Atherosclerotic heart disease of unga coronary artery without angina pectoris Plan: Known history of CAD with prior MO. Cardiac catheterization done in 2004 showed 40% lad stenosis which was managed medically.. He also has family history of brother with 2 vessel bypass age 59. His last visit in our office was October 2019. At that time he was on metoprolol XL 25 mg daily, aspirin 81 mg daily, Zetia 10 mg daily and pravastatin 20 mg daily. At this point he tells me he is not taking any medications. He is not clear on what happen to his prior prescriptions, the refills ran out and he must have stopped taking them. He denies any anginal symptoms. 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 EKG done today showing normal sinus rhythm with no acute ST or T-wave abnormalities, rate 74. No strong indication for stress test at present. Will order an echocardiogram to assess EF, wall motion. If any concerning findings will order stress test for further evaluation. Last prior echo was done in 2017 with EF 60-65%, mild tricuspid regurgitation. Will have him restart on metoprolol XL 25 mg daily, aspirin 81 mg daily and atorvastatin 20 mg daily. Fasting lipid and comprehensive metabolic profile in 2 months. Cardiology follow-up in 6 months, sooner if needed (2) Atrial arrhythmia: Code(s): I49.8 - Other specified cardiac arrhythmias Plan: Device interrogation today shows short brief runs of atrial arrhythmia cons istent with atrial flutter lasting seconds with longest episode for minutes May 2022. Since then all episodes have been less than 1 minute. He does not notice heart palpitations. Chads Vasc score of 3 with hypertension, age, vascular disease. Will continue remote monitoring and reassess next visit. If he has prolonged episodes of AF then anticoagulation will be indicated. At present will be starting aspirin. Spent time reviewing diagnosis with him, stroke risk reviewed. (3) Pacemaker: Comment: Biotronik dual-chamber Code(s): Z95.0 - Presence of cardiac pacemaker Plan: Biotronik dual-chamber pacemaker in place. Battery 5 years. Functioning well on interrogation today. He uses remote monitoring at home. Office interrogation again in 6 months. (4) Hypertension: Code(s): I10 - Essential (primary) hypertension Plan: Normal range today. With his atrial arrhythmia and coronary disease will be starting low-dose metoprolol. (5) Hyperlipidemia: Code(s): E78.5 - Hyperlipidemia, unspecified Plan: [place] LDL goal less than 70. Starting on atorvastatin 20 mg daily. Previously had been on pravastatin 20 mg daily. Will plan for fasting lipids and CMP in 2 months Orders: Orders CA echo transthoracic complete Today I25.10 - Atherosclerotic heart disease of unga coronary artery without angina pectoris, I49.8 - Other specified cardiac arrhythmias, Z95.0 - Presence of cardiac pacemaker Lipid Panel 2 Months E78.5 - Hyperlipidemia, unspecified Comprehensive [place]. Panel Fast 2 Months E78.5 - Hyperlipidemia, unspecified Medications: New metoprolol succinate ER 25 mg PO DAILY 90 tabs 3RF atorvastatin 20 mg PO BEDTIME 90 tabs 3RF Coding Level of Care Code Est Pt Level 4 (78764) Diagnoses CAD (coronary artery disease) I25.10 Atrial arrhythmia I49.8 Pacemaker Z95.0 Hypertension I10 Hyperlipidemia E78.5 CPT Codes Cardiac Device Check - Cardiac Device 2: [id number] Cardiac Device Check, pacemaker dual lead ([id number]) EKG - CPT: 66407-[id number], Complete ([id number]) Time Spent (min) 30 Comment Chart review, documentation, interview, assessment
[2023-06-25 13:15] VITALS: BP 120/82; PULSE 74; BMI 27.7
== END 2023-06-25 13:46 | disposition home or self-care (01) ==
PROVIDERS: PCP Internal Medicine; Referring Provider Internal Medicine; Visit Provider Nurse Practitioner Family
DX: I25.10 Atherosclerotic heart disease of native coronary artery without angina pectoris (principal); I49.8 Other specified cardiac arrhythmias; Z95.0 Presence of cardiac pacemaker; I10 Essential (primary) hypertension; E78.5 Hyperlipidemia, unspecified
CPT/HCPCS: 93280; 99214

== ENCOUNTER → 2023-06-25 12:58 | Outpatient (BNVA) | payer OTHER, SELFPAY | PROVIDERS: PCP Internal Medicine; Referring Provider Internal Medicine; Visit Provider Nurse Practitioner Family | DX: I25.10 Atherosclerotic heart disease of native coronary artery without angina pectoris (principal); I49.8 Other specified cardiac arrhythmias; I10 Essential (primary) hypertension; E78.5 Hyperlipidemia, unspecified; Z45.018 Encounter for adjustment and management of other part of cardiac pacemaker | CPT/HCPCS: 93005; 93280 ==

== ENCOUNTER → 2023-07-24 23:59 | Outpatient (BNV) | payer OTHER, SELFPAY ==
--- NOTE | 2023-07-26 09:35 | MHC.OFFVIS ---
Intake Intake Visit Reasons: Remote Device Check- Biotronik Allergies No Known Allergies Allergy (Verified 06/25/23 13:17) [facility] Medical History (Updated 06/25/23 @ 17:08 by Yessi Oneil NP-C) Asthma H/O myocardial infarction, greater than 8 weeks Pacemaker Social History Alcohol intake: current Alcohol intake frequency: holidays/special occasions only Patient Tobacco Use Status: Never used Tobacco Tobacco use type: Cigarette Office Procedures Cardiac Device Check Cardiac Device Check Details: Remote pacemaker report generated 07/24/2023. Pacemaker function is adequate [id number] Cardiac Device Interrogation, pacemaker Procedure code (CPT) selection complete Coding Level of Care Code Procedure Only CPT Codes Cardiac Device Check - Cardiac Device 12: [id number] Cardiac Device Interrogation, pacemaker ([id number])
== END ==
PROVIDERS: PCP Internal Medicine; Visit Provider Internal Medicine Cardiovascular Disease
DX: I49.8 Other specified cardiac arrhythmias (principal); Z95.0 Presence of cardiac pacemaker
CPT/HCPCS: 93294

== ENCOUNTER → 2023-07-26 09:40 | Outpatient (REF) | payer OTHER, SELFPAY ==
--- NOTE | 2023-07-26 09:47 | CA_ITS ---
Transthoracic Echocardiogram Patient (Last, First, Middle): Chris Winter, Gender: Male Date of : 1960 Age: 63 Procedure Date: 07/26/2023 Procedure Type: Transthoracic Echocardiogram Location: OP Height: 190.5 cm Weight: 100.7 kg BSA: 2.29 m2 Heart Rate: 63 bpm BP: 122 / 80 mmHg Lead Trainer: SB Referring MD: Yessi Oneil COMPUTER OPERATIONS SUPERVISOREstiven Component Engineer: Melvin Perdomo MD Symptoms: I25.10 - Atherosclerotic heart disease of [place] coronary artery without... Study Quality: Adequate ECG Rhythm: Sinus Conclusions: - 1. Normal LV ejection fraction 65-70% with impaired relaxation filling pattern 2. Normal cardiac valvular Dopplers 3. Normal RV systolic pressure 4. No gross pericardial Findings Left Ventricle Normal left ventricular size, thickness, and systolic function. The visually estimated ejection fraction is between 65-70%. Spectral Doppler is indicative of an impaired relaxation filling pattern. Peak GLS is -16.2%, mildly reduced. Right Ventricle Normal right ventricular cavity size and systolic function. There is a pacemaker wire seen in the right ventricle. Atria Both atria are normal in size. There is no evidence of interatrial shunt. A pacemaker wire is identified in the right atrium. Aortic Valve Normal aortic valve structure and function. There is no aortic valve stenosis. There is no aortic valve regurgitation. Mitral Valve Normal mitral valve structure and function. There is trace mitral valve regurgitation. There is no mitral valve stenosis. Pulmonic Valve The pulmonic valve is likely normal. There is trace pulmonic valve regurgitation. Tricuspid Valve Normal tricuspid valve structure. There is mild tricuspid valve regurgitation. The right ventricular systolic pressure is normal. The right ventricular systolic pressure is 22 mmHg. Normal right atrial pressure. There is no evidence of pulmonary hypertension. Great Vessels All visible segments of the aorta are normal in size. The pulmonary artery was not well visualized. Venous The inferior vena cava is normal in size and collapses greater than 50% with inspiration. Pericardium/Pleural There is no evidence of pericardial effusion. Prior Study Comparison No significant change compared to prior study dated: 04/28/2017. Measurements 2D Linear Measurements IVSd: 0.89 0.6-0.9/0.6-1.0 cm LVIDd: 4.12 3.9-5.3/4.2-5.9 cm LVIDd Index: 1.80 2.4-3.2/2.2-3.1 cm/m2 LVIDs: 2.54 2.0-3.6 cm LVPWd: 0.83 0.7-1.1 cm LA Diam: 4.00 2.7-3.8/3.0-4.0 cm LAIDs Index: 1.75 1.5-2.3 cm/m2 LV Mass: 134.84 67-162/88-224 g LV Mass Index: 58.88 43-95/49-115 g/m2 LVOT Diam: 2.10 3.0+(-)1.3 cm 2D Systolic Function EF 4C: 73.40 >55% EF 2C: 72.70 >55% EF BiP: 73.40 >55% Mitral Valve MV Pk E: 0.54 MV PK A: 0.60 MV Decel Time: 218.00 E/A: 0.90 E'Lateral: 9.36 E'Medial: 5.22 E/E' Med: 10.40 E/E' Lat: 5.80 PHT: 64.00 MVA PHT: 3.44 Decel Eagle: 2.49 Aortic Valve AoV Pk Brad: 1.19 AoV Pk Grad: 6.00 DIGNA: 3.30 LVOT LVOT Pk Brad: 1.16 LVOT Mn Brad: 0.81 LVOT VTI: 0.25 LVOT Pk Grad: 5.00 LVOT Mn Grad: 3.00 LVOT Diam: 2.10 LVOT Area: 3.46 Diastolic Function MV Pk E: 0.54 MV Pk A: 0.60 E/A: 0.90 E'Medial: 5.22 E/E' Med: 10.40 E' Laterial: 9.36 E/E' Lat: 5.80 Right Ventricle TAPSE (mm): 18.70 TVS' Brad: 10.10 Tricuspid Valve TR Pk Brad: 2.20 TR Pk Grad: 19.00 RA Press: 3.00 RVSP: 22.00 Great Vessels Aorta Sinus of Valsalva: 3.00 2.0-3.5 cm Ao Asc: 3.10 2.1-3.4 cm Ao Arch: 3.30 Pulmonary Veins Pulm Vein S/D 1.60 Pulmonary Valve PV Pk Brad: 0.86 Peak PV Grad: 3.00 Updated in Other Vendor System with Status of Final Melvin Perdomo MD electronically signed on 07/26/2023 12:03:00 PM with status of Final
== END ==
LOC: HO.CARD 09:40
PROVIDERS: PCP Internal Medicine; Visit Provider Nurse Practitioner Family
DX: I25.10 Atherosclerotic heart disease of native coronary artery without angina pectoris (principal); I49.8 Other specified cardiac arrhythmias; Z95.0 Presence of cardiac pacemaker
CPT/HCPCS: 93306; 93356

== ENCOUNTER → 2023-07-26 09:47 | Outpatient (BNV) | payer OTHER, SELFPAY | PROVIDERS: PCP Internal Medicine; Visit Provider Internal Medicine Cardiovascular Disease | DX: I36.1 Nonrheumatic tricuspid (valve) insufficiency (principal); I25.10 Atherosclerotic heart disease of native coronary artery without angina pectoris | CPT/HCPCS: 93306 ==

== ENCOUNTER → 2023-10-26 23:59 | Outpatient (BNV) | payer OTHER, SELFPAY ==
--- NOTE | 2023-10-30 08:07 | A.OFFVIS_ITS ---
Intake Intake Visit Reasons: Remote Device Check- Biotronik Allergies No Known Allergies Allergy (Verified 06/25/23 13:17) [facility] Medical History (Updated 06/25/23 @ 17:08 by Yessi Oneil NP-C) Asthma H/O myocardial infarction, greater than 8 weeks Pacemaker Social History Alcohol intake: current Alcohol intake frequency: holidays/special occasions only Patient Tobacco Use Status: Never used Tobacco Tobacco use type: Cigarette Office Procedures Cardiac Device Check Cardiac Device Check Details: Remote pacemaker report generated 10/26/2023. Pacemaker function is adequate [id number] Cardiac Device Interrogation, pacemaker Procedure code (CPT) selection complete Assessment & Plan Assessment & Plan (1) Pacemaker: Comment: Biotronik dual-chamber Code(s): Z95.0 - Presence of cardiac pacemaker Plan: See above Coding Level of Care Code Procedure Only Diagnoses Pacemaker Z95.0 CPT Codes Cardiac Device Check - Cardiac Device 12: [id number] Cardiac Device Interrogation, pacemaker ([id number])
== END ==
PROVIDERS: PCP Internal Medicine; Visit Provider Internal Medicine Cardiovascular Disease
DX: I49.8 Other specified cardiac arrhythmias (principal); Z95.0 Presence of cardiac pacemaker
CPT/HCPCS: 93294

== ENCOUNTER 2023-12-24 12:46 | Outpatient (AMB) | payer OTHER, SELFPAY ==
[2023-12-24 13:22] VITALS: BP 120/70; PULSE 85
--- NOTE | 2023-12-24 13:22 | A.OFFVIS_ITS ---
Intake Vital Signs 12/24/23 13:22 Height 6 ft 2 in Weight 233 lb 11.04 oz BMI 30.0 BP 120/70 Blood Pressure Location Lt brachial Position Sitting Pulse 85 Intake Visit Reasons: biotronic Intake Note: follow-up with biotronic check feeling good Specification Consultant Required: No Allergies No Known Allergies Allergy (Verified 06/25/23 13:17) Medication List - Last Reconciled 12/24/23 by Melvin Perdomo MD aspirin 81 mg PO DAILY atorvastatin 20 mg PO BEDTIME metoprolol succinate ER 25 mg PO DAILY HPI HPI Comments History of Present Illness Details Chris comes for follow-up. He has been doing very well from cardiac perspective. Exercises regularly. Has no exertional chest pain or shortness of breath. Takes all his medications regularly. I do not have the copy of his most recent lipid panel. Will obtain that from your office. Patient denies any prolonged palpitation irregular heartbeat. Blood pressures been generally well controlled. [facility] Medical History Asthma H/O myocardial infarction, greater than 8 weeks Pacemaker Social History Alcohol intake: current Alcohol intake frequency: holidays/special occasions only Patient Tobacco Use Status: Never used Tobacco Tobacco use type: Cigarette Review of Systems Const Denies chills, Denies fatigue, Denies fever(s), Denies frequent falls, Denies weakness, Denies weight gain and Denies weight loss ENT Denies dizziness Card Denies chest pain, Denies leg edema, Denies lightheadedness, Denies palpitations, Denies dyspnea, Denies dyspnea on exertion, Denies orthopnea and Denies other (loss of consciousness) Resp Denies cough, Denies dyspnea and Denies dyspnea on exertion GI Denies hematochezia and Denies change in stool character Musc Denies abnormal gait, Denies muscle weakness, Denies numbness, Denies radiating pain into limb and Denies tingling Neuro Denies abnormal gait, Denies dizziness, Denies frequent falls, Denies numbness, Denies tingling and Denies weakness Endo Denies fatigue and Denies palpitations Physical Exam Vital Signs: Last Vital Signs Pulse 85 12/24/23 13:22 BP 120/70 12/24/23 13:22 BMI result Body Mass Index 30.0 Const General: cooperative, healthy appearing, comfortable and no acute distress Orientation/consciousness: patient oriented x3 Neck Neck: Yes normal visual inspection Resp Effort & Inspection: normal respiratory effort Auscultation: clear to auscultation bilaterally, no crackles, no rales, no rhonchi and no wheezes Cardio Jugular venous distension: no JVD Rate: regular rate Rhythm: regular rhythm Heart sounds: S1 normal heart sound present, S2 normal heart sound present, no murmurs and no rubs Neuro General: patient oriented x3 Extrem General: Yes normal to inspection and No no pedal edema Psych Appearance: grossly normal Mental Status: mental status grossly normal Speech and movement: Normal speech and movement present Office Procedures Cardiac Device Check Cardiac Device Check Details: Dual-chamber Biotronik pacemaker in place. Programmed in DDD at 60 beats per minute. Minimal atrial pacing at 2%. No ventricular pacing. No atrial arrhythmias noted. Battery life is at 4 years and 8 months. Atrial ventricular thresholds are adequate. Lead impedance is stable. Atrial ventricular sensing is adequate. [id number] Cardiac Device Check, pacemaker dual lead Procedure code (CPT) selection complete Assessment & Plan Assessment & Plan (1) CAD (coronary artery disease): Code(s): I25.10 - Atherosclerotic heart disease of [place] coronary artery without angina pectoris Plan: CAD which is nonobstructive and currently has no symptoms with exertion. He is done well overall with medical therapy. No further workup is indicated at this point time. Advised to continue aggressive medical therapy. Continue low-dose aspirin therapy for life. Continue statin therapy. Will obtain lipid panel. Target goal LDL closer to 60 mg/dL. Blood pressure is well optimized. (2) Pacemaker: Comment: Biotronik dual-chamber Code(s): Z95.0 - Presence of cardiac pacemaker Plan: Cardiac pacemaker in-situ, working well. Patient has prior history of atrial arrhythmias which are now suppressed on metoprolol therapy. Has no recurrent symptoms. Will continue monitor every 3 months remotely. Follow up in the clinic in 1 year's time, sooner p.r.n.. Thank you for allowing me to partake in his care Coding Level of Care Code Est Pt Level 4 (76212) Diagnoses CAD (coronary artery disease) I25.10 Pacemaker Z95.0 CPT Codes Cardiac Device Check - Cardiac Device 2: [id number] Cardiac Device Check, pacemaker dual lead ([id number])
== END 2023-12-24 13:58 | disposition home or self-care (01) ==
PROVIDERS: PCP Internal Medicine; Visit Provider Internal Medicine Cardiovascular Disease
DX: I25.10 Atherosclerotic heart disease of native coronary artery without angina pectoris (principal); I49.8 Other specified cardiac arrhythmias; Z95.0 Presence of cardiac pacemaker
CPT/HCPCS: 93280; 99213

== ENCOUNTER → 2023-12-24 12:46 | Outpatient (BNVA) | payer OTHER, SELFPAY | PROVIDERS: PCP Internal Medicine; Visit Provider Internal Medicine Cardiovascular Disease | DX: I25.10 Atherosclerotic heart disease of native coronary artery without angina pectoris (principal); Z79.82 Long term (current) use of aspirin; Z79.899 Other long term (current) drug therapy; Z45.018 Encounter for adjustment and management of other part of cardiac pacemaker | CPT/HCPCS: 93280 ==

== ENCOUNTER → 2024-01-20 23:59 | Outpatient (BNV) | payer OTHER, SELFPAY ==
--- NOTE | 2024-01-21 13:18 | MHC.OFFVIS ---
Intake Intake Visit Reasons: Remote Device Check- Biotronik Allergies No Known Allergies Allergy (Verified 06/25/23 13:17) PFSH Medical History Asthma H/O myocardial infarction, greater than 8 weeks Pacemaker Social History Alcohol intake: current Alcohol intake frequency: holidays/special occasions only Patient Tobacco Use Status: Never used Tobacco Tobacco use type: Cigarette Office Procedures Cardiac Device Check Cardiac Device Check Details: Remote pacemaker report generated 01/21/2024. Pacemaker function is adequate [id number] Cardiac Device Interrogation, pacemaker Procedure code (CPT) selection complete Assessment & Plan Assessment & Plan (1) Pacemaker: Comment: Biotronik dual-chamber Code(s): Z95.0 - Presence of cardiac pacemaker Plan: See above Coding Level of Care Code Procedure Only Diagnoses Pacemaker Z95.0 CPT Codes Cardiac Device Check - Cardiac Device 12: [id number] Cardiac Device Interrogation, pacemaker ([id number])
== END ==
PROVIDERS: PCP Internal Medicine; Visit Provider Internal Medicine Cardiovascular Disease
DX: I49.8 Other specified cardiac arrhythmias (principal); Z95.0 Presence of cardiac pacemaker
CPT/HCPCS: 93294

== ENCOUNTER → 2024-04-04 08:15 | Outpatient (REF) | payer OTHER, SELFPAY ==
--- NOTE | ~2024-04-04 | NM_ITS ---
Exercise Myocardial perfusion study Indication: Shortness of breath to evaluate for myocardial ischemia Technique: The patient was brought in for an exercise perfusion study on 04/04/2024. Patient performed exercise as per Chip protocol and was injected 40 mCi of sestamibi was given intravenously one target HR was achieved. Images were obtained using the SPECT gamma camera interlaced with the gating device. Images were obtained in supine position. Resting perfusion study was performed on 04/07/2024. Patient was administered 40 mCi of sestamibi intravenously at rest. Images were then obtained in supine position. Images obtained with and without CT attenuation. Total DLP 111 mGy-cm. Images were processed with the software and compared side to side in short axis, horizontal long axis and vertical long axis views. Findings: The stress perfusion study showed non attenuated images show mildly reduced uptake in the basal inferior wall of the LV myocardium. Remainder of the LV myocardium is normally perfused. Attenuation corrected images show normal uptake of radiotracer in all segments of LV myocardium. The gated study shows normal LV systolic function with calculated LVEF of 56%. LV cavity is normal in size. The gated study shows normal systolic wall thickening and contraction of all segments. There is no transient ischemic dilation. Resting study shows no change in perfusion compared to stress perfusion study. Gating at rest reveals normal systolic wall motion with ejection fraction at 71%. The findings are consistent with normal myocardial perfusion. NM/NM cardiolite stress test Impression: 1. Perfusion 2. Gated LVEF is 56% 3. Transient ischemic dilatation not present Stress EKG is negative for ischemia
--- NOTE | 2024-04-04 08:19 | CA_ITS ---
Acquisition Time: 2024-04-04 08:24:45 Total Exercise Time: 00:09:31 Test Indications: Dyspnea Medications: SE H Protocol: SHUBHAM Max HR: 130 BPM 82% of Pred: 158 BPM Max BP: 154/088 mmHG Max Work Load: 10.9 METS Exercise stress test with exercise 9 min 31 sec of Shubham protocol, achieving 82% MPHR, 10.9 MET workload, with mild shortness of breath, fatigue and need to stop, no chest discomfort, without arrythmia, with normotensive response to exercise, without EKG changes meeting criteria for ischemia. Nuclear images pending. Test reviewed with Dr Perdomo. Referred By: Melvin Perdomo Overread By: OLGA MAURER
== END ==
LOC: HO.CARD 08:15
PROVIDERS: PCP Internal Medicine; Visit Provider Internal Medicine Cardiovascular Disease
DX: R06.02 Shortness of breath (principal); R53.83 Other fatigue; I25.10 Atherosclerotic heart disease of native coronary artery without angina pectoris; I49.8 Other specified cardiac arrhythmias
CPT/HCPCS: 78452; 93017; A9500

== ENCOUNTER → 2024-04-04 08:19 | Outpatient (BNV) | payer OTHER, SELFPAY | PROVIDERS: PCP Internal Medicine; Visit Provider Nurse Practitioner Family | DX: R06.02 Shortness of breath (principal) | CPT/HCPCS: 78452; 93016; 93018 ==

== ENCOUNTER → 2024-04-22 23:59 | Outpatient (BNV) | payer OTHER, SELFPAY ==
--- NOTE | 2024-04-22 15:24 | A.OFFVIS_ITS ---
Intake Visit Reasons: Remote Device Check- Biotronik Allergies No Known Allergies Allergy (Verified 06/25/23 13:17) PFSH Medical History Asthma H/O myocardial infarction, greater than 8 weeks Pacemaker Social History Alcohol intake: current Alcohol intake frequency: holidays/special occasions only Patient Tobacco Use Status: Never used Tobacco Tobacco use type: Cigarette Office Procedures Cardiac Device Check Cardiac Device Check Details: Remote pacemaker report generated 04/22/2024. Pacemaker function is adequate [id number] Cardiac Device Interrogation, pacemaker Procedure code (CPT) selection complete Assessment & Plan Assessment & Plan (1) Pacemaker: Comment: Biotronik dual-chamber Code(s): Z95.0 - Presence of cardiac pacemaker Category: Medical Plan: See above Coding Level of Care Code Procedure Only Diagnoses Pacemaker Z95.0 CPT Codes Cardiac Device Check - Cardiac Device 12: [id number] Cardiac Device In [facility], [place], pacemaker ([id number])
== END ==
PROVIDERS: PCP Internal Medicine; Visit Provider Internal Medicine Cardiovascular Disease
DX: Z45.018 Encounter for adjustment and management of other part of cardiac pacemaker (principal)
CPT/HCPCS: 93294

== ENCOUNTER → 2024-07-21 23:59 | Outpatient (BNV) | payer OTHER, SELFPAY ==
--- NOTE | 2024-07-23 13:15 | A.OFFVIS_ITS ---
Intake Visit Reasons: Remote device check- Biotronik Allergies No Known Allergies Allergy (Verified 06/25/23 13:17) PFSH Medical History Asthma H/O myocardial infarction, greater than 8 weeks Pacemaker Social History Alcohol intake: current Alcohol intake frequency: holidays/special occasions only Patient Tobacco Use Status: Never used Tobacco Tobacco use type: Cigarette Office Procedures Cardiac Device Check Cardiac Device Check Details: Remote pacemaker report generated 07/21/2024. Pacemaker function is adequate [id number] Cardiac Device Interrogation, pacemaker Procedure code (CPT) selection complete Assessment & Plan Assessment & Plan (1) Pacemaker: Comment: Biotronik dual-chamber Code(s): Z95.0 - Presence of cardiac pacemaker Category: Medical Plan: See above Coding Level of Care Code Procedure Only Diagnoses Pacemaker Z95.0 CPT Codes Cardiac Device Check - Cardiac Device 12: [id number] Cardiac Device In [facility], pacemaker ([id number])
== END ==
PROVIDERS: PCP Internal Medicine; Visit Provider Internal Medicine Cardiovascular Disease
DX: Z45.018 Encounter for adjustment and management of other part of cardiac pacemaker (principal)
CPT/HCPCS: 93294

== ENCOUNTER → 2024-10-20 23:59 | Outpatient (BNV) | payer OTHER, SELFPAY ==
--- NOTE | 2024-10-23 10:15 | A.OFFVIS_ITS ---
Intake Visit Reasons: Remote device check- Biotronik Allergies No Known Allergies Allergy (Verified 06/25/23 13:17) PFSH Medical History Asthma H/O myocardial infarction, greater than 8 weeks Pacemaker Social History Alcohol intake: current Alcohol intake frequency: holidays/special occasions only Patient Tobacco Use Status: Never used Tobacco Tobacco use type: Cigarette Office Procedures Cardiac Device Check Cardiac Device Check Details: Remote pacemaker report generated 10/20/2024. Pacemaker function is adequate [id number] Cardiac Device Interrogation, pacemaker Procedure code (CPT) selection complete Assessment & Plan Assessment & Plan (1) Pacemaker: Comment: Biotronik dual-chamber Code(s): Z95.0 - Presence of cardiac pacemaker Category: Medical Plan: See above Coding Level of Care Code Procedure Only Diagnoses Pacemaker Z95.0 CPT Codes Cardiac Device Check - Cardiac Device 12: [id number] Cardiac Device I nterrogation, pacemaker ([id number])
== END ==
PROVIDERS: PCP Internal Medicine; Visit Provider Internal Medicine Cardiovascular Disease
DX: Z45.018 Encounter for adjustment and management of other part of cardiac pacemaker (principal)
CPT/HCPCS: 93294

== ENCOUNTER 2024-12-22 12:41 | Outpatient (AMB) | payer OTHER, SELFPAY ==
--- NOTE | 2024-12-22 12:56 | MHC.OFFVIS ---
Vital Signs 12/22/24 12:57 Height 6 ft 2 in Weight 233 lb BMI 29.9 BP 118/68 Blood Pressure Location Lt brachial Position Sitting Pulse 68 Pulse Source Monitor Intake Visit Reasons: 1 yr w/ biotronic ck Allergies No Known Allergies Allergy (Verified 06/25/23 13:17) Medication List - Last Reconciled 12/22/24 by Melvin Perdomo MD aspirin 81 mg PO DAILY atorvastatin 20 mg PO BEDTIME cetirizine (Zyrtec) 10 mg PO DAILY PRN ezetimibe (Zetia) 10 mg PO DAILY fluticasone furoate 200 mcg/actuation 1 inh inhalation DAILY lifitegrast 5% (Xiidra) 1 drp ophthalmic (eye) BID metformin 500 mg PO DAILY metoprolol succinate ER 25 mg PO DAILY pramipexole 1 mg PO TID sildenafil 100 mg PO DAILY PRN HPI Comments Details: poonam comes for follow-up. He has been doing very well from cardiac perspective. Denies any exertional chest pain or shortness of breath. Denies any prolonged palpitation irregular heartbeat. No lightheadedness, syncope. Takes all his medications. He says LDL is generally well controlled. No lightheadedness, syncope. [facility] Medical History Asthma H/O myocardial infarction, greater than 8 weeks Pacemaker Social History Alcohol intake: current Alcohol intake frequency: holidays/special occasions only Patient Tobacco Use Status: Never used Tobacco Tobacco use type: Cigarette Review of Systems Const Denies weakness ENT Denies dizziness Card Denies chest pain, Denies chest pain with activity, Denies syncope, Denies rapid heart rate, Denies pedal edema, Denies edema, Denies leg edema, Denies lightheadedness, Denies palpitations, Denies dyspnea, Denies dyspnea on exertion and Denies orthopnea Resp Denies cough, Denies dyspnea and Denies dyspnea on exertion GI Denies hematochezia and Denies change in stool character Musc Denies abnormal gait, Denies muscle cramps, Denies muscle weakness, Denies numbness, Denies radiating pain into limb and Denies tingling Neuro Denies abnormal gait, Denies dizziness, Denies syncope, Denies numbness, Denies tingling and Denies weakness Endo Denies palpitations Physical Exam Vital Signs: Last Vital Signs Pulse 68 12/22/24 12:57 BP 118/68 12/22/24 12:57 BMI result Body Mass Index 29.9 Const General: cooperative, healthy appearing, comfortable and no acute distress Orientation/consciousness: patient oriented x3 Neck Neck: Yes normal visual inspection Resp Effort & Inspection: normal respiratory effort Auscultation: clear to auscultation bilaterally, no crackles, no rales, no rhonchi and no wheezes Cardio Jugular venous distension: no JVD Rate: regular rate Rhythm: regular rhythm Heart sounds: S1 normal heart sound present, S2 normal heart sound present, no murmurs and no rubs Neuro General: patient oriented x3 Extrem General: Yes normal to inspection and No no pedal edema Psych Appearance: grossly normal Mental Status: mental status grossly normal Speech and movement: Normal speech and movement present Office Procedures Cardiac Device Check Cardiac Device Check Details: Dual-chamber Biotronik pacemaker in place. Programmed in DDD at 60 beats per minute. Atrial pacing 1% time. One episode of atrial fibrillation noted lasting 17 minutes. Atrial ventricular sensing is excellent. Atrial ventricular pacing thresholds excellent. Pacing lead impedance is stable. Battery life is at 3 years and 7 months [id number] Cardiac Device Check, pacemaker dual lead Procedure code (CPT) selection complete EKG Details: EKG shows normal sinus rhythm normal EKG [id number], Complete Assessment & Plan Assessment & Plan (1) Pacemaker: Comment: Biotronik dual-chamber Code(s): Z95.0 - Presence of cardiac pacemaker Category: Medical Plan: Cardiac pacemaker in-situ for syncope. Although he was not had any significant issues and he is currently not using pacemaker much. Continue monitor remotely every 3 months. Follow up in the clinic in 1 year's time. (2) CAD (coronary artery disease): Code(s): I25.10 - Atherosclerotic heart disease of [place] coronary artery without angina pectoris Category: Medical Plan: Nonobstructive CAD without any obvious exertional symptoms. Continue low-dose aspirin therapy for life. Continue statin therapy along with ezetimibe therapy. Target goal LDL less than 70 mg/dL. Blood pressure is currently well optimized advised to monitor blood pressure at home maintain a log. Continue aggressive diabetes management goal hemoglobin A1c less than 7%. (3) Paroxysmal atrial fibrillation: Code(s): I48.0 - Paroxysmal atrial fibrillation Category: Medical Plan: Paroxysmal atrial fibrillation device detected without any obvious symptoms related to it. [place] of atrial fibrillation has short. No need for anticoagulation therapy. Will continue monitor by pacer telemetry. Will follow up in the clinic in 1 year's time, sooner p.r.n.. Thank you for allowing me to partake in his care Coding Level of Care Code Est Pt Level 4 (00871) Complex EM visit Add On G2211 Diagnoses Pacemaker Z95.0 CAD (coronary artery disease) I25.10 Paroxysmal atrial fibrillation I48.0 CPT Codes Cardiac Device Check - Cardiac Device 2: [id number] Cardiac Device Check, pacemaker dual lead ([id number]) EKG - CPT: 34360-Nldarysoirhirwpdq, Complete ([id number])
[2024-12-22 12:57] VITALS: BP 118/68; PULSE 68; BMI 29.9
== END 2024-12-22 13:15 | disposition home or self-care (01) ==
PROVIDERS: PCP Internal Medicine; Visit Provider Internal Medicine Cardiovascular Disease
DX: I25.10 Atherosclerotic heart disease of native coronary artery without angina pectoris (principal); Z95.0 Presence of cardiac pacemaker; I48.0 Paroxysmal atrial fibrillation
CPT/HCPCS: 93010; 93280; 99214

== ENCOUNTER → 2024-12-22 12:41 | Outpatient (BNVA) | payer OTHER, SELFPAY | PROVIDERS: PCP Internal Medicine; Visit Provider Internal Medicine Cardiovascular Disease | DX: I25.10 Atherosclerotic heart disease of native coronary artery without angina pectoris (principal); I48.0 Paroxysmal atrial fibrillation; Z45.018 Encounter for adjustment and management of other part of cardiac pacemaker | CPT/HCPCS: 93005; 93280 ==

== ENCOUNTER → 2025-01-20 23:59 | Outpatient (BNV) | payer OTHER, SELFPAY ==
--- NOTE | 2025-01-20 16:26 | A.OFFVIS_ITS ---
Intake Visit Reasons: Remote device check- Biotronik Allergies No Known Allergies Allergy (Verified 06/25/23 13:17) PFSH Medical History Asthma H/O myocardial infarction, greater than 8 weeks Pacemaker Social History Alcohol intake: current Alcohol intake frequency: holidays/special occasions only Patient Tobacco Use Status: Never used Tobacco Tobacco use type: Cigarette Office Procedures Cardiac Device Check Cardiac Device Check Details: Remote pacemaker report generated 01/20/2025. Pacemaker function is adequate [id number] Cardiac Device Interrogation, pacemaker Procedure code (CPT) selection complete Assessment & Plan Assessment & Plan (1) Pacemaker: Comment: Biotronik dual-chamber Code(s): Z95.0 - Presence of cardiac pacemaker Category: Medical Plan: See above Coding Level of Care Code Procedure Only Diagnoses Pacemaker Z95.0 CPT Codes Cardiac Device Check - Cardiac Device 12: [id number] Cardiac Device In [facility], pacemaker ([id number])
== END ==
PROVIDERS: PCP Internal Medicine; Visit Provider Internal Medicine Cardiovascular Disease
DX: Z45.018 Encounter for adjustment and management of other part of cardiac pacemaker (principal)
CPT/HCPCS: 93294

== ENCOUNTER 2025-03-06 20:57 | Emergency (ER) | payer OTHER, SELFPAY ==
--- NOTE | 2025-03-06 | ECG_ITS ---
Test Reason : cp Blood Pressure : */* mmHG Vent. Rate : 99 BPM Atrial Rate : 99 BPM P-R Int : 186 ms QRS Dur : 72 ms QT Int : 320 ms P-R-T Axes : 33 39 30 degrees QTcB Int : 410 ms Normal sinus rhythm Normal ECG When compared with ECG of 03-Nov-2020 14:33, No significant change was found Referred By: Generic ED Physician Electronically Signed By: JULIO MERAZ
--- NOTE | ~2025-03-06 | XR_ITS ---
CLINICAL HISTORY: chest pain 2 view chest x-ray. Comparison: CR/SR - XR CHEST 2V - 03/20/22 21:03 EDT Findings: No consolidation, pneumothorax, or effusion. Heart size normal. Dual lead left subclavian cardiac pacemaker device in place with leads projecting over the right atrium and right ventricle. Multilevel degenerative endplate changes are present at the thoracic spine. Impression: 1. No acute cardiopulmonary process. No focal pulmonary consolidation. This document has been electronically signed by: Adonay Hanna MD on 03/06/2025 22:35:59
[2025-03-06 21:35] VITALS: BP 119/71; PULSE 95; RESP 18; TEMP 36.8; O2SAT 97; BMI 28.2
[2025-03-06 21:57] LABS: MANUAL DIFF FLAG NO
[2025-03-06 22:12] LABS: Basophils Percent Auto 0.5 % (0-2); Eosinophils Absolute Auto 0.1 X10*3/uL (0.0-0.4); Eosinophils Percent Auto 1.6 % (0-4); Hematocrit 39.3 % (42.0-52.0); Hemoglobin 13.5 g/dl (14.0-18.0); Imm Gran Abs Auto 0.05 X10*3/uL (0.00-0.03); Imm Gran Pct Auto 0.6 % (0.0-0.4); Lymphocytes Absolute Auto 1.4 X10*3/uL (1.2-4.9); Lymphocytes Percent Auto 16.7 % (20-40); Mean Corpuscular HGB Conc 34.4 g/dl (31.0-36.0); Mean Corpuscular Hemoglobin 29.5 pg (27.0-33.0); Mean Corpuscular Volume 85.8 fL (80.0-98.0); Mean Platelet Volume 10.1 fL (9.4-12.4); Monocytes Absolute Auto 0.7 X10*3/uL (0.1-1.2); Neutrophils Absolute Auto 6.3 x10*3/uL (2.0-8.3); Neutrophils Percent Auto 72.6 % (45-73); Platelet Count 161 X10*3/uL (160-400); Red Blood Count 4.58 X10*6/uL (4.60-5.80); White Blood Count 8.6 X10*3/uL (4.8-10.8)
[2025-03-06 22:13] LABS: Anion Gap 16 (12-20); Blood Urea Nitrogen 22 mg/dL (9-16); Calcium 9.3 mg/dL (8.4-10.2); Carbon Dioxide 21 mmol/L (22-29); Chloride 105 mmol/L (96-108); Creatinine Clr Calc Pharmacy 104.8; Estimated Glomerular Filt Rate > 60; Glucose Random 110 mg/dL (60-115); Potassium 3.5 mmol/L (3.3-5.1); Sodium 138 mmol/L (135-145)
[2025-03-06 22:22] LABS: Troponin-I High Sensitivity < 2.7 ng/L (<3.5-35.0)
[2025-03-06 22:41] LABS: Alanine Aminotransferase 43 U/L (0-40); Albumin Level 4.5 g/dL (3.5-5.0); Alkaline Phosphatase 84 U/L (39-117); Aspartate Amino Transferase 35 U/L (5-37); Bilirubin Direct 0.1 mg/dL (0.0-0.5); Bilirubin Total 0.4 mg/dL (0.0-1.0); Lipase 30 U/L (8-78); Total Protein 7.1 g/dL (6.5-8.0)
--- NOTE | 2025-03-06 23:32 | ED.CHESTPAIN ---
HPI - Chest Pain General Chief Complaint: Chest Pain Stated Complaint: chest pain Time Seen by Provider: 03/06/25 22:38 Source: patient Limitations: no limitations History of Present Illness ED Provider: Patricia Olson PA-C HPI narrative: 64-year-old male with a history of anxiety, hypertension, hyperlipidemia, diabetes, coronary artery disease, STEMI, paroxysmal AFib not anticoagulated, status post pacemaker who presents with chest pain. Patient states he was watching sports when he developed left anterior chest discomfort, describing the pain as ?someone punching me in the chest?. Patient states his symptoms lasted for an hour. No radiation of pain, associated diaphoresis and paresthesias of his face. Patient states he has had a panic attack in the past following his [place], however he denies anxiety or panic attack overnight. Denies recent cough or cold symptoms no fever. 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 Related Data Home Medications ?Medication ?Instructions ?Recorded ?Confirmed aspirin 81 mg tablet,delayed 81 mg PO DAILY 06/25/23 12/22/24 release cetirizine 10 mg capsule (Zyrtec) 10 mg PO DAILY PRN 12/22/24 12/22/24 ezetimibe 10 mg tablet (Zetia) 10 mg PO DAILY 12/22/24 12/22/24 fluticasone furoate 200 1 inh inhalation DAILY 12/22/24 12/22/24 mcg/actuation blister powder for inhalation lifitegrast 5 % eye drops in a 1 drp ophthalmic (eye) BID 12/22/24 12/22/24 dropperette (Xiidra) metformin 500 mg tablet 500 mg PO DAILY 12/22/24 12/22/24 pramipexole 1 mg tablet 1 mg PO TID 12/22/24 12/22/24 sildenafil 100 mg tablet 100 mg PO DAILY PRN 12/22/24 12/22/24 Previous Rx's ?Medication ?Instructions ?Recorded atorvastatin 20 mg tablet 20 mg PO BEDTIME #90 tabs 06/25/23 metoprolol succinate 25 mg 25 mg PO DAILY #90 tabs 07/21/24 tablet,extended release 24 hr Allergies Allergy/AdvReac Type Severity Reaction Status Date / Time No Known Allergies Allergy Verified 03/06/25 21:38 Review of Systems Review of Systems: Yes all other systems are reviewed and are negative Constitutional: Constitutional: Denies fatigue and Denies fever(s) Cardiovascular: Cardiovascular: Reports chest pain and Denies dyspnea Respiratory: Respiratory: Denies cough and Denies dyspnea Gastrointestinal: Gastrointestinal: Denies abdominal pain, Denies nausea and Denies vomiting Endocrine: Endocrine: Denies fatigue [facility] Past Medical History Attestation statement: The following information was validated with the patient. Medical History Asthma H/O myocardial infarction, greater than 8 weeks Pacemaker Social History Social History Alcohol intake: current Alcohol intake frequency: a few times a week Alcohol type: beer Patient Tobacco Use Status: Never used Tobacco Tobacco use type: Cigarette Smoked in Last 30 Days: No Use of substances other than those prescribed or required for medical reasons: Yes Substance Use Type: Marijuana Advance Directives: No Advance Directives Information Provided: No Do you have a plan to hurt others: No Plan Physical Exam Vital Signs: Vital Signs: Last Vital Signs Temp 98.0 F 03/07/25 00:55 Pulse 80 03/07/25 00:55 Resp 16 03/07/25 00:55 BP 117/85 03/07/25 00:55 Pulse Ox 97 03/07/25 00:55 O2 Del Method Room Air 03/07/25 00:55 BMI result Body Mass Index 28.2 Const: Other: Alert Orientation/consciousness: patient oriented x3 Resp: Effort & Inspection: normal respiratory effort Cardio: Other: Normal peripheral perfusion Skin: Other: Warm dry no rash Neuro: General: patient oriented x3, gait normal, no focal motor deficits and CN's II-XI intact bilaterally Psych: Other: Cooperative Medical Decision Making Medical Decision Making MDM Narrative: 64-year-old male with a history of anxiety, hypertension, hyperlipidemia, diabetes, coronary artery disease, STEMI, paroxysmal AFib not anticoagulated, status post pacemaker who presents with chest pain. Patient states he was watching sports when he developed left anterior chest discomfort, describing the pain as ?someone punching me in the chest?. Patient states his symptoms lasted for an hour. No radiation of pain, associated diaphoresis and paresthesias of his face. Patient states he has had a panic attack in the past following his [place], however he denies anxiety or panic attack overnight. Denies recent cough or cold symptoms no fever. 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 Problem: Known coronary artery disease History: Per patient I have considered the following differential diagnoses: A firing of the pacemaker, ACS, chest wall strain, costochondritis, panic attack, viral syndrome, pneumonia Plan: ACS was considered, the patient has known coronary artery disease with a concerning story. Screening labs including cardiac enzymes and EKG and chest x-ray obtained. Thus far everything is negative. The patient could have chest wall strain, he does perform physical activity on a regular basis. He has no infectious symptoms to suggest pneumonia or subsequent costochondritis from viral syndrome. His symptoms could also be related to a potential panic attack, although the patient denies new stress or associated anxiety provoking encounter. Patient also states that his pacer did not fire, he states that sensation is very different. I have independently reviewed the following tests: Labs: No leukocytosis, not anemic, no electrolyte abnormality, troponin x2 are negative EKG: Normal sinus rhythm, rate of 99, no ischemic changes no ectopy QTC 410 Chest x-ray:Findings: No consolidation, pneumothorax, or effusion. Heart size normal. Dual lead left subclavian cardiac pacemaker device in place with leads projecting over the right atrium and right ventricle. Multilevel degenerative endplate changes are present at the thoracic spine. Impression: 1. No acute cardiopulmonary process. No focal pulmonary consolidation. Lab Data 03/06/25 21:52 03/06/25 21:52 Labs: Lab Results 03/06/25 03/06/25 Range/Units 21:52 23:39 WBC 8.6 (4.8-10.8) X10*3/uL RBC 4.58 L (4.60-5.80) X10*6/uL Hgb 13.5 L (14.0-18.0) g/dl Hct 39.3 L (42.0-52.0) % MCV 85.8 (80.0-98.0) fL MCH 29.5 (27.0-33.0) pg MCHC 34.4 (31.0-36.0) g/dl RDW 13.0 (11.0-16.0) % Plt Count 161 (160-400) X10*3/uL MPV 10.1 (9.4-12.4) fL Immature Gran % (Auto) 0.6 H (0.0-0.4) % Neut % (Auto) 72.6 (45-73) % Lymph % (Auto) 16.7 L (20-40) % George % (Auto) 8.0 (2-11) % Eos % (Auto) 1.6 (0-4) % Baso % (Auto) 0.5 (0-2) % Lymph # (Auto) 1.4 (1.2-4.9) X10*3/uL George # (Auto) 0.7 (0.1-1.2) X10*3/uL Eos # (Auto) 0.1 (0.0-0.4) X10*3/uL Baso # (Auto) 0.0 (0.0-0.2) X10*3/uL Abs Immat Gran (auto) 0.05 H (0.00-0.03) X10*3/uL Absolute Neuts (auto) 6.3 (2.0-8.3) x10*3/uL Absolute Nucleated RBC 0.000 (0.0-0.012) X10*3/uL Nucleated RBC % (auto) 0.0 (0.0-0.2) /100WBC Sodium 138 (135-145) mmol/L Potassium 3.5 (3.3-5.1) mmol/L Chloride 105 (96-108) mmol/L Carbon Dioxide 21 L (22-29) mmol/L Anion Gap 16 (12-20) BUN 22 H (9-16) mg/dL Creatinine 0.91 (0.5-1.4) mg/dL Estim Creat Clear Calc 104.8 Estimated GFR > 60 Random Glucose 110 (60-115) mg/dL Calcium 9.3 (8.4-10.2) mg/dL Total Bilirubin 0.4 (0.0-1.0) mg/dL Direct Bilirubin 0.1 (0.0-0.5) mg/dL AST 35 (5-37) U/L ALT 43 H (0-40) U/L Alkaline Phosphatase 84 (39-117) U/L Troponin I High Sens < 2.7 < 2.7 (<3.5-35.0) ng/L Total Protein 7.1 (6.5-8.0) g/dL Albumin 4.5 (3.5-5.0) g/dL Lipase 30 (8-78) U/L Discharge Plan Discharge Clinical Impression: Chest pain Patient Disposition: Home, Self-Care Instructions: Chest Pain (ED) Additional Instructions: All of your screening labs including 2 cardiac enzymes were normal, there were no concerning changes on the EKG in the chest x-ray is clear. 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 Prescriptions: No Action metoprolol succinate 25 mg tablet extended release 24 hr 25 mg PO DAILY Qty: 90 3RF aspirin 81 mg tablet,delayed release (DR/EC) 81 mg PO DAILY atorvastatin 20 mg tablet 20 mg PO BEDTIME Qty: 90 3RF fluticasone furoate 200 mcg/actuation blister with device 1 inh inhalation DAILY metformin 500 mg tablet 500 mg PO DAILY pramipexole 1 mg tablet 1 mg PO TID sildenafil 100 mg tablet 100 mg PO DAILY PRN Rx Instructions: administer 30 minutes to 4 hours before activity Xiidra 5 % dropperette 1 drp ophthalmic (eye) BID Rx Instructions: administer approximately 12 hours apart ezetimibe [Zetia] 10 mg tablet 10 mg PO DAILY Zyrtec 10 mg capsule 10 mg PO DAILY PRN Interventions: ED Discharge Assessment Last Done: 03/07/25 00:55 Discharge Date/Time: 03/07/25 00:56 Print Language: Kyrgyz
[2025-03-06 23:33] VITALS: BP 114/73; PULSE 80; RESP 16; TEMP 37; O2SAT 97
[2025-03-07 00:14] LABS: Troponin-I High Sensitivity < 2.7 ng/L (<3.5-35.0)
[2025-03-07 00:55] VITALS: BP 117/85; PULSE 80; RESP 16; TEMP 36.7; O2SAT 97
== END 2025-03-07 00:56 | disposition home or self-care (01) ==
PROVIDERS: Physician Assistant Medical; Emergency Provider Emergency Medicine; PCP Internal Medicine
DX: R07.9 Chest pain, unspecified (principal); E11.9 Type 2 diabetes mellitus without complications; I10 Essential (primary) hypertension; E78.5 Hyperlipidemia, unspecified; I48.0 Paroxysmal atrial fibrillation; Z95.0 Presence of cardiac pacemaker; Z79.02 Long term (current) use of antithrombotics/antiplatelets; Z79.84 Long term (current) use of oral hypoglycemic drugs; Z79.899 Other long term (current) drug therapy; Z79.82 Long term (current) use of aspirin
CPT/HCPCS: 36415; 71046; 80048; 80076; 83690; 84484; 85025; 93005; 99283; 99284

== ENCOUNTER → 2025-03-06 21:01 | Outpatient (BNV) | payer OTHER, SELFPAY | PROVIDERS: Emergency Provider Emergency Medicine; PCP Internal Medicine; Visit Provider Internal Medicine | DX: R07.9 Chest pain, unspecified (principal) | CPT/HCPCS: 93010 ==

== ENCOUNTER → 2025-03-06 21:50 | Outpatient (BNV) | payer OTHER, SELFPAY | PROVIDERS: PCP Internal Medicine; Visit Provider Radiology Diagnostic Radiology | DX: R07.9 Chest pain, unspecified (principal) | CPT/HCPCS: 71046 ==

== ENCOUNTER 2025-03-12 12:49 | Outpatient (AMB) | payer OTHER, SELFPAY ==
--- NOTE | 2025-03-12 12:55 | MHC.OFFVIS ---
Vital Signs 03/12/25 12:58 Height 6 ft 2 in Weight 220 lb 7.396 oz BMI 28.3 BP 120/80 Blood Pressure Location Lt brachial Position Sitting Pulse 84 Intake Visit Reasons: [facility] ed follow up/chest pain Intake Note: Follow-up [facility] ED chest pain c/o having trouble doing the stairs lately which is new [employer] Driver Required: No Allergies No Known Allergies Allergy (Verified 03/06/25 21:38) HPI Comments Details: Chris comes for follow-up after recent hospital presentation with chest pain. Patient said he was in usual state of health and was playing pool and then suddenly developed retrosternal chest pain associated with shortness of breath. He also broke out in a sweat. He came to the emergency room. His EKGs normal his troponins were normal and then he was sent home. 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 He denies any orthopnea, PND, leg edema. [facility] Medical History Asthma H/O myocardial infarction, greater than 8 weeks Pacemaker Social History Alcohol intake: current Alcohol intake frequency: a few times a week Alcohol type: beer Patient Tobacco Use Status: Never used Tobacco Tobacco use type: Cigarette Substance Use Type: Marijuana Review of Systems Const Denies chills, Denies fatigue, Denies fever(s), Denies frequent falls, Denies weakness, Denies weight gain and Denies weight loss ENT Denies dizziness Card Reports chest pain, Denies leg edema, Denies lightheadedness, Denies palpitations, Denies dyspnea, Reports dyspnea on exertion, Denies orthopnea and Denies other (loss of consciousness) Resp Denies cough, Denies dyspnea and Reports dyspnea on exertion GI Denies hematochezia and Denies change in stool character Musc Denies abnormal gait, Denies muscle weakness, Denies numbness, Denies radiating pain into limb and Denies tingling Neuro Denies abnormal gait, Denies dizziness, Denies frequent falls, Denies numbness, Denies tingling and Denies weakness Endo Denies fatigue and Denies palpitations Physical Exam Vital Signs: Last Vital Signs Pulse 84 03/12/25 12:58 BP 120/80 03/12/25 12:58 BMI result Body Mass Index 28.3 Const General: cooperative, healthy appearing, comfortable and no acute distress Orientation/consciousness: patient oriented x3 Neck Neck: Yes normal visual inspection Resp Effort & Inspection: normal respiratory effort Auscultation: clear to auscultation bilaterally, no crackles, no rales, no rhonchi and no wheezes Cardio Jugular venous distension: no JVD Rate: regular rate Rhythm: regular rhythm Heart sounds: S1 normal heart sound present, S2 normal heart sound present, no murmurs and no rubs Neuro General: patient oriented x3 Extrem General: Yes normal to inspection and No no pedal edema Psych Appearance: grossly normal Mental Status: mental status grossly normal Speech and movement: Normal speech and movement present Assessment & Plan Assessment & Plan (1) CAD (coronary artery disease): Code(s): I25.10 - Atherosclerotic heart disease of campo coronary artery without angina pectoris Category: Medical Plan: Patient with prior nonobstructive CAD, based on normal stress test but presence of coronary calcium. Currently having recurrent symptoms and symptoms that are concerning. Will suggest coronary CTA to evaluate for any obstructive coronary artery disease. This is be scheduled in near future. For now continue low-dose aspirin therapy as well as statin therapy and ezetimibe therapy. Target goal LDL less than 70 mg/dL. He had metoprolol. (2) Pacemaker: Comment: Biotronik dual-chamber Code(s): Z95.0 - Presence of cardiac pacemaker Category: Medical Plan: Cardiac pacemaker in-situ, working well. Will follow up in the clinic in 3 months time (3) SOB (shortness of breath): Code(s): R06.02 - Shortness of breath Plan: New onset exertional shortness of breath. Cardiomyopathy process needs to be ruled out. Will suggest echocardiogram near future. Will follow up in the clinic in 3 months time, sooner p.r.n.. Thank you for allowing me to partake in his care Coding Level of Care Code Est Pt Level 4 (54599) Complex EM visit Add On G2211 Diagnoses CAD (coronary artery disease) I25.10 Pacemaker Z95.0 SOB (shortness of breath) R06.02
[2025-03-12 12:58] VITALS: BP 120/80; PULSE 84; BMI 28.3
== END 2025-03-12 13:26 | disposition home or self-care (01) ==
LOC: HO.HCS 12:50
PROVIDERS: PCP Internal Medicine; Visit Provider Internal Medicine Cardiovascular Disease
DX: I25.10 Atherosclerotic heart disease of native coronary artery without angina pectoris (principal); Z95.0 Presence of cardiac pacemaker; R06.02 Shortness of breath
CPT/HCPCS: 99214

== ENCOUNTER → 2025-03-12 12:49 | Outpatient (BNVA) | payer OTHER, SELFPAY | PROVIDERS: PCP Internal Medicine; Visit Provider Internal Medicine Cardiovascular Disease ==

== ENCOUNTER → 2025-04-08 08:46 | Outpatient (REF) | payer OTHER, SELFPAY ==
--- NOTE | 2025-04-08 08:49 | CA_ITS ---
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 Normal LV ejection fraction 55-60% with impaired relaxation filling pattern 2. Normal cardiac valvular Dopplers 3. Normal RV systolic pressure 4. No gross pericardial effusion Findings Left Ventricle Normal left ventricular size, thickness, and systolic function. The visually estimated ejection fraction is between 55-60%. Spectral Doppler is indicative of an impaired relaxation filling pattern. E/E prime ratio is between 8 and 15 consistent with indeterminate filling pressures. Right Ventricle Normal right ventricular cavity size and systolic function. There is a pacemaker wire seen in the right ventricle. Atria The left atrium is likely dilated. The right atrium is normal in size. A pacemaker wire is identified in the right atrium. Aortic Valve Normal aortic valve structure and function. There is no aortic valve stenosis. There is no aortic valve regurgitation. Mitral Valve Normal mitral valve structure and function. There is trace mitral valve regurgitation. There is no mitral valve stenosis. Pulmonic Valve The pulmonic valve is likely normal. There is trace pulmonic valve regurgitation. Tricuspid Valve Normal tricuspid valve structure. There is mild tricuspid valve regurgitation. The right ventricular systolic pressure is normal. The right ventricular systolic pressure is 28 mmHg. Normal right atrial pressure. There is no evidence of pulmonary hypertension. Great Vessels The pulmonary artery was not well visualized. Small plaque is seen in the sino tubular ridge. Venous The inferior vena cava is normal in size and collapses greater than 50% with inspiration. Pericardium/Pleural There is no evidence of pericardial effusion. Prior Study Comparison No significant change compared to prior study dated: 07/26/2023. Measurements 2D Linear Measurements IVSd: 1.12 0.6-0.9/0.6-1.0 cm LVIDd: 4.17 3.9-5.3/4.2-5.9 cm LVIDd Index: 1.85 2.4-3.2/2.2-3.1 cm/m2 LVIDs: 2.63 2.0-3.6 cm LVPWd: 1.00 0.7-1.1 cm LA Diam: 3.40 2.7-3.8/3.0-4.0 cm LAIDs Index: 1.50 1.5-2.3 cm/m2 LV Mass: 183.40 67-162/88-224 g LV Mass Index: 81.15 43-95/49-115 g/m2 LVOT Diam: 2.20 3.0+(-)1.3 cm 2D Systolic Function EF 4C: 56.60 >55% EF 2C: 60.00 >55% EF BiP: 58.50 >55% Mitral Valve MV Pk E: 0.50 MV PK A: 0.56 MV Decel Time: 159.00 E/A: 0.90 E'Lateral: 8.92 E'Medial: 4.90 E/E' Med: 10.10 E/E' Lat: 5.60 PHT: 47.00 MVA PHT: 4.68 Decel Arthur: 3.13 Aortic Valve AoV Pk Brad: 1.39 AoV Mn Brad: 0.96 AoV VTI: 0.29 AoV Pk Grad: 8.00 Aov Mn Grad: 4.00 DIGNA Cont.VTI: 3.41 LVOT LVOT Pk Brad: 1.13 LVOT Mn Brad: 0.72 LVOT VTI: 0.26 LVOT Pk Grad: 5.00 LVOT Mn Grad: 2.00 LVOT Diam: 2.20 LVOT Area: 3.80 Diastolic Function MV Pk E: 0.50 MV Pk A: 0.56 E/A: 0.90 E'Medial: 4.90 E/E' Med: 10.10 E' Laterial: 8.92 E/E' Lat: 5.60 Right Ventricle TAPSE (mm): 19.40 TVS' Brad: 9.90 Tricuspid Valve TR Pk Brad: 2.24 TR Pk Grad: 20.00 RA Press: 8.00 RVSP: 28.00 Great Vessels Aorta Sinus of Valsalva: 3.51 2.0-3.5 cm Ao Asc: 3.60 2.1-3.4 cm Updated in Other Vendor System with Status of Final Melvin Leanne MD electronically signed on 04/09/2025 11:20:18 AM with status of Final
== END ==
LOC: HO.CARD 08:46
PROVIDERS: PCP Internal Medicine; Visit Provider Internal Medicine Cardiovascular Disease
DX: R06.02 Shortness of breath (principal)
CPT/HCPCS: 93306

== ENCOUNTER → 2025-04-08 08:49 | Outpatient (BNV) | payer OTHER, SELFPAY | PROVIDERS: PCP Internal Medicine; Visit Provider Internal Medicine Cardiovascular Disease | DX: R06.02 Shortness of breath (principal) | CPT/HCPCS: 93306 ==

== ENCOUNTER → 2025-04-19 23:59 | Outpatient (BNV) | payer OTHER, SELFPAY ==
--- NOTE | 2025-04-27 12:06 | MHC.OFFVIS ---
Intake Visit Reasons: Remote device check- Biotronik Allergies No Known Allergies Allergy (Verified 03/06/25 21:38) PFSH Medical History Asthma H/O myocardial infarction, greater than 8 weeks Pacemaker Social History Alcohol intake: current Alcohol intake frequency: a few times a week Alcohol type: beer Patient Tobacco Use Status: Never used Tobacco Tobacco use type: Cigarette Substance Use Type: Marijuana Office Procedures Cardiac Device Check Cardiac Device Check Details: Remote pacemaker report generated 04/19/2025. Pacemaker function is adequate [id number] Cardiac Device Interrogation, pacemaker Procedure code (CPT) selection complete Assessment & Plan Assessment & Plan (1) Pacemaker: Comment: Biotronik dual-chamber Code(s): Z95.0 - Presence of cardiac pacemaker Category: Medical Plan: See above Coding Level of Care Code Procedure Only Diagnoses Pacemaker Z95.0 CPT Codes Cardiac Device Check - Cardiac Device 12: [id number] Cardiac Device Interrogation, pacemaker ([id number])
== END ==
PROVIDERS: PCP Internal Medicine; Visit Provider Internal Medicine Cardiovascular Disease
DX: Z45.018 Encounter for adjustment and management of other part of cardiac pacemaker (principal)
CPT/HCPCS: 93294

== ENCOUNTER 2025-05-12 10:49 | Outpatient (AMB) | payer OTHER, SELFPAY ==
--- NOTE | 2025-05-12 10:59 | A.OFFVIS_ITS ---
Vital Signs 05/12/25 10:59 Height 6 ft 2 in Intake Visit Reasons: 1 YR, SZ Allergies No Known Allergies Allergy (Verified 05/12/25 11:04) Medication List - Last Reconciled 05/12/25 by Rachel Brunner CNP aspirin 81 mg PO DAILY atorvastatin 20 mg PO BEDTIME cetirizine (Zyrtec) 10 mg PO DAILY PRN ezetimibe (Zetia) 10 mg PO DAILY fluticasone furoate 200 mcg/actuation 1 inh inhalation DAILY levetiracetam 1,000 mg PO BID lifitegrast 5% (Xiidra) 1 drp ophthalmic (eye) BID lorazepam 1 mg PO DAILY PRN metformin 500 mg PO DAILY metoprolol succinate ER 25 mg PO DAILY montelukast 10 mg PO DAILY pramipexole 1 mg PO TID rivaroxaban (Xarelto) 20 mg PO DAILY sertraline 50 mg PO DAILY sildenafil 100 mg PO DAILY PRN trazodone 100 mg PO DAILY HPI Comments Details: He was doing okay. No seizures or seizure-like episodes. Taking levetiracetam twice a day, no side effects. Pramipexole was not helping with restlessness as much anymore. It was not lasting as long anymore and having some more restless feeling in left arm. It was worse at night time, usually around 9pm. Sleep was okay. Mood was okay. Had small Sz on 10/26/2022 with few seconds of feeling funny and muscles tightened. Had small sz 09/2021 for 10 sec, head tightness and muscle tightness without LOC or loss of awareness. May have missed a pill or two. Had one Sz on 11/05/2020 after missing 2 days of seizure meds while being in quarantine for positive COVID test. No episodes of eye blinking since Keppra 1gm bid. No episodes of confusion. No tongue bite or incontinence. Confused and takes a day to get back to normal. Aches and pains. Had sz 07/26/2019. Episodes where he repeatedly blinks and can't see last 1-2 minutes. One time heard people talking but no one was there. Had a 48 hr period of insomnia. Has seizure type episodes where he falls, shakes, convulses for 2 minutes. If he is touched, he is startled. Does not bite tongue and is not incontinent. No triggers. Some more severe, lies on the floor and face and limbs twist. No incontinence. No tongue bite. After a bad one he stays in bed for hours. After a mild one he sleeps for 15 minutes and confused. Around 2009, he went deep sea fishing trip for 3 days and when he came back, he was a changed man. Has been on disability since then. According to his he has periods where he goes blank and there are times where his hands will cramp up when he looks disoriented and startled and cannot respond. Previously was getting these episodes about once a week. He also has had periods where he cannot communicate. He is been worked up at the [facility], [facility] and [facility] and the workup has been unremarkable. Briefly he was given a trial of Depakote. His daughter suffers from seizure disorder. Recurring symptoms of left sided restlessness. Left arm jerks when he is relaxing at night. Previously was having tingling sensations in his anterior chest which starts to feel tight and then he has to keep moving around to get rid of the symptoms which occurred daily around 8 PM when he is trying to relax. He has a history of chronic restlessness in his legs. Whenever he tries to rest in the evening, he gets tingling and tight sensation in his legs and has to keep moving them. Has a family history of restless leg syndrome. In the past, he was prescribed baclofen for some tremulousness. [facility] Medical History (Updated 05/12/25 @ 11:02 by Rachel Brunner CNP) Extrapyramidal and movement disorder, unspecified Seizure RLS (restless legs syndrome) Anxiety Asthma H/O myocardial infarction, greater than 8 weeks Pacemaker Social History Alcohol intake: current Alcohol intake frequency: a few times a week Alcohol type: beer Patient Tobacco Use Status: Never used Tobacco Tobacco use type: Cigarette Substance Use Type: Marijuana Review of Systems Const Denies chills, Denies daytime sleepiness, Denies difficulty sleeping, Denies fatigue, Denies fever(s), Denies frequent falls, Reports headache(s), Denies increased appetite, Denies poor appetite, Reports snoring, Denies weakness, Denies weight gain and Denies weight loss Eyes Denies loss of vision ENT Denies vertigo, Denies dizziness, Reports headache(s) and Reports neck pain Card Denies chest pain at rest, Denies chest pain with activity, Denies syncope, Denies leg edema, Denies palpitations, Denies dyspnea and Denies dyspnea on exertion Resp Denies cough, Denies dyspnea, Denies dyspnea on exertion and Reports snoring GI Denies abdominal pain, Denies constipation, Denies heartburn, Denies diarrhea and Denies nausea Denies urinary frequency, Denies urinary incontinence and Denies urinary urgency Musc Denies abnormal gait, Reports back pain, Reports myalgias, Reports arthralgias, Reports neck pain, Denies numbness and Denies tingling Neuro Denies abnormal gait, Denies vertigo, Denies dizziness, Denies syncope, Denies frequent falls, Reports headache(s), Denies lack of coordination, Denies loss of vision, Denies memory loss, Denies numbness, Denies Other visual disturbances, Reports restless legs, Reports seizure-like activity, Denies tingling, Denies paresthesias, Reports tremor(s) and Denies weakness Psych Denies anxiety, Denies depression, Denies auditory hallucinations, Denies memory loss and Denies visual hallucinations Endo Denies fatigue and Denies palpitations Physical Exam Const Other: General Appearance:? normal, in no acute distress. Heart:? S1, S2 normal, no murmurs. Lungs:? clear anteriorly and posteriorly. Musculoskeletal:? normal. Extremities:? no edema. Psych:? alert, oriented, cognitive function intact, cooperative with exam. Neuro Other: Abnormal Neurological Findings:?none.? Mental Status: alert and oriented X 3. Normal attention, orientation, memory, and affect. Cranial Nerves: Pupils are equal, round, and reactive to light. External ocular muscles are intact. Visual warren are full, no ptosis. Face is symmetrical, no facial weakness or droop. Facial sensations are normal. Tongue protrudes in midline. Palate elevates symmetrically. Shoulder shrugging is normal Motor Examination: Normal muscle tone, bulk and strength. No atrophy or fascic ulations. No drift of the extended upper extremities. DTR 2+. Plantars are flexor. Straight Leg Raisin degrees. Sensory Exam: Normal light touch, temperature, pinprick, vibration, and joint- position sensations. Rhomberg sign is absent. Coordination: No ataxia. No titubation. Dayidc-hx-pfrw, qzfl-gklh-jpxq test, and rapid alternating movements were normal. Gait Exam: Within normal limits. Cerebellar Signs: Jigqvm-eb-czgb and ytkt-eg-aaax is normal. No dysdiadochok inesia. Extrapyramidal System: No tremor, rigidity with normal facial expressions. No bradykinesia. No bradyphrenia. Normal arm swing and posture. No propulsion or retropulsion. Speech: Normal. No dysphasia or dysarthria. Assessment & Plan Assessment & Plan (1) Seizure: Code(s): R56.9 - Unspecified convulsions Category: Medical Plan: Continue levetiracetam 1000mg 1 tablet twice a day. (2) RLS (restless legs syndrome): Code(s): G25.81 - Restless legs syndrome Category: Medical Plan: Continue pramipexole 1mg 1 tablet three times a day. Start gabapentin 300mg 1 capsule daily in the evening. 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 [place] [facility] [place] [facility] [place] [facility]. 24 hr EEG shows recurrent occipital lobe SZ activity with prolonged sharp theta discharges Medications: New gabapentin 300 mg PO .daily in the evening 90 caps 1RF 90 days Coding Level of Care Code Est Pt Level 4 (56045) Diagnoses Seizure R56.9 RLS (restless legs syndrome) G25.81
== END 2025-05-12 11:13 | disposition home or self-care (01) ==
LOC: HO.HSM 10:50
PROVIDERS: PCP Internal Medicine; Referring Provider Internal Medicine; Visit Provider Registered Nurse
DX: R56.9 Unspecified convulsions (principal); G25.81 Restless legs syndrome
CPT/HCPCS: 99214

== ENCOUNTER 2025-05-19 13:36 | Outpatient (REF) | payer OTHER, SELFPAY ==
[2025-05-19 16:31] LABS: Anion Gap 13 (12-20); Blood Urea Nitrogen 17 mg/dL (9-16); Calcium 8.9 mg/dL (8.4-10.2); Carbon Dioxide 25 mmol/L (22-29); Chloride 106 mmol/L (96-108); Estimated Glomerular Filt Rate > 60; Potassium 3.8 mmol/L (3.3-5.1); Sodium 140 mmol/L (135-145)
== END 2025-05-19 13:37 | disposition home or self-care (01) ==
LOC: HO.HMGCLDS 13:36
PROVIDERS: PCP Internal Medicine; Visit Provider Internal Medicine Cardiovascular Disease
DX: I10 Essential (primary) hypertension (principal); I48.0 Paroxysmal atrial fibrillation
CPT/HCPCS: 36415; 80048

== ENCOUNTER → 2025-07-21 23:59 | Outpatient (BNV) | payer OTHER, SELFPAY ==
--- NOTE | 2025-07-22 13:19 | MHC.OFFVIS ---
Intake Visit Reasons: Remote device check- Biotronik Allergies No Known Allergies Allergy (Verified 05/12/25 11:04) [facility] Medical History (Updated 05/12/25 @ 11:02 by Rachel Brunner CNP) Extrapyramidal and movement disorder, unspecified Seizure RLS (restless legs syndrome) Anxiety Asthma H/O myocardial infarction, greater than 8 weeks Pacemaker Social History Alcohol intake: current Alcohol intake frequency: a few times a week Alcohol type: beer Patient Tobacco Use Status: Never used Tobacco Tobacco use type: Cigarette Substance Use Type: Marijuana Office Procedures Cardiac Device Check Cardiac Device Check Details: Remote pacemaker report generated 07/21/2025. Pacemaker function is adequate [id number] Cardiac Device Interrogation, pacemaker Procedure code (CPT) selection complete Assessment & Plan Assessment & Plan (1) Pacemaker: Comment: Biotronik dual-chamber Code(s): Z95.0 - Presence of cardiac pacemaker Category: Medical Plan: See above Coding Level of Care Code Procedure Only Diagnoses Pacemaker Z95.0 CPT Codes Cardiac Device Check - Cardiac Device 12: [id number] Cardiac Device Interrogation, pacemaker ([id number])
== END ==
PROVIDERS: PCP Internal Medicine; Visit Provider Internal Medicine Cardiovascular Disease
DX: Z45.018 Encounter for adjustment and management of other part of cardiac pacemaker (principal)
CPT/HCPCS: 93294

== ENCOUNTER 2025-09-21 12:42 | Outpatient (AMB) | payer OTHER, SELFPAY ==
[2025-09-21 13:06] VITALS: BP 114/62; PULSE 82; BMI 27.7
--- NOTE | 2025-09-21 13:06 | MHC.OFFVIS ---
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: No Allergies No Known Allergies Allergy (Verified 09/21/25 13:07) Medication List - Last Reconciled 09/21/25 by ISAIAS Langley aspirin 81 mg PO DAILY atorvastatin 20 mg PO BEDTIME cetirizine (Zyrtec) 10 mg PO DAILY PRN ezetimibe (Zetia) 10 mg PO DAILY fluticasone furoate 200 mcg/actuation 1 inh inhalation DAILY gabapentin 300 mg PO .daily in the evening 90 days levetiracetam 1,000 mg PO BID lifitegrast 5% (Xiidra) 1 drp ophthalmic (eye) BID lorazepam 1 mg PO DAILY PRN metformin 500 mg PO DAILY metoprolol succinate ER 25 mg PO DAILY pramipexole 1 mg PO TID rivaroxaban (Xarelto) 20 mg PO DAILY sertraline 50 mg PO DAILY sildenafil 100 mg PO DAILY PRN trazodone 100 mg PO DAILY HPI HPI 6m w device ck: Details: The patient is a 65 year old individual presenting for follow-up of coronary artery disease, paroxysmal AFib, hypertension, hyperlipidemia and pacemaker interrogation. The patient has a history of nonobstructive coronary artery disease, diagnosed via recent coronary CTA. Pacemaker check today noted an 11-hour episode of asymptomatic atrial fibrillation on 09/02. Over the last couple of weeks, the patient has experienced transient shortness of breath for a few seconds upon lying down, which has occurred approximately three times. The patient sleeps on a raised medical bed and denies associated symptoms such as coughing, unexplained weight gain, ankle swelling, or shortness of breath with activity. The patient also denies chest pain, heart palpitations, lightheadedness, or activity intolerance. He has no bleeding issues. The patient maintains a very active lifestyle, including riding a pedal bicycle for at least 3 miles daily and walking about 4 miles daily. His currently steps typically range around [address]/ day. The patient has a right total knee replacement scheduled for October 09 and then anticipates having a left total knee replacement a few months later. [facility] Medical History Extrapyramidal and movement disorder, unspecified Seizure RLS (restless legs syndrome) Anxiety Asthma H/O myocardial infarction, greater than 8 weeks Pacemaker Social History Alcohol intake: current Alcohol intake frequency: a few times a week Alcohol type: beer Patient Tobacco Use Status: Never used Tobacco Tobacco use type: Cigarette Substance Use Type: Marijuana Review of Systems Const All systems reviewed & are unremarkable except as noted in HPI and below ENT Denies dizziness Card Denies chest pain, Denies chest pain at rest, Denies chest pain with activity, Denies rapid heart rate, Denies pedal edema, Denies edema, Denies leg edema, Denies lightheadedness, Denies palpitations, Denies dyspnea, Denies dyspnea on exertion and Denies orthopnea Resp Denies cough, Denies dyspnea and Denies dyspnea on exertion GI Denies hematochezia and Denies change in stool character Musc Denies abnormal gait, Reports limited range of motion (Right knee pain), Reports muscle cramps, Denies muscle weakness, Denies numbness, Denies radiating pain into limb, Denies stiffness and Denies tingling Neuro Denies abnormal gait, Denies dizziness, Denies numbness and Denies tingling Endo Denies palpitations Physical Exam Vital Signs: Last Vital Signs Pulse 82 09/21/25 13:06 BP 114/62 09/21/25 13:06 BMI result Body Mass Index 27.7 Const General: cooperative, healthy appearing, comfortable and no acute distress Orientation/consciousness: patient oriented x3 Neck Neck: Yes normal visual inspection Resp Effort & Inspection: normal respiratory effort Auscultation: clear to auscultation bilaterally, no rales, no rhonchi and no wheezes Cardio Rate: regular rate Rhythm: regular rhythm Heart sounds: S1 normal heart sound present, S2 normal heart sound present, no gallops, no murmurs and no rubs Neuro General: patient oriented x3 Extrem General: Yes normal to inspection, No no pedal edema and No calf tenderness Psych Appearance: grossly normal Mental Status: mental status grossly normal Speech and movement: Normal speech and movement present Office Procedures Cardiac Device Check Cardiac Device Check Details: Nebularonik dual-chamber pacemaker interrogation today shows battery 3 years, DDD mode, low rate 60, atrial threshold 1 volt at 0.4 milliseconds, RV threshold 1.7 volts at 0.4 milliseconds, 11 hours of AFib on 09/06/2025, asymptomatic, mean rate 93 [id number] Cardiac Device Check, pacemaker dual lead Procedure code (CPT) selection complete EKG Details: Today showing normal sinus rhythm, rate 82, QTC 420 milliseconds [id number], Complete Assessment & Plan Assessment & Plan (1) CAD (coronary artery disease): Comment: Coronary CTA (05/21/2025): Showed 50-69% stenosis of the mid LAD, mild stenosis (25-49%) of the proximal circumflex and proximal OM1, and mild stenosis (25-49%) of the proximal RCA. - FFR: Showed diffuse flow limitation in the xel-yj-aufeab LAD without evidence of a focal hemodynamically significant stenosis. Code(s): I25.10 - Atherosclerotic heart disease of augustine coronary artery without angina pectoris Category: Medical Plan: Finding of moderate coronary artery disease, asymptomatic. Coronary CTA results as above. Echocardiogram (04/08/2025): EF 55-60%, impaired relaxation, normal valves, and normal RV systolic pressure. EKG today showing normal sinus rhythm, rate 82. Signs and symptoms of angina reviewed with him. Continue aspirin, atorvastatin with ideal LDL goal less than 70, metoprolol. Cardiology follow-up 6 months, sooner if needed. (2) Paroxysmal atrial fibrillation: Code(s): I48.0 - Paroxysmal atrial fibrillation Category: Medical Plan: History of paroxysmal atrial fibrillation. Last episode occurring on 09/06/2025, lasting 11 hours, asymptomatic. V rate was controlled at 93. Continue metoprolol. Continue Xarelto for anticoagulation. Biannual CBC and BMP. Will continue to follow AFib burden remotely. (3) Pacemaker: Comment: Biotronik dual-chamber Code(s): Z95.0 - Presence of cardiac pacemaker Category: Medical Plan: Biotronik dual-chamber pacemaker in place. Functioning normally on interrogation today. Battery 3 years. Remote monitoring in use. Next office interrogation due in 6 months. (4) Hypertension: Code(s): I10 - Essential (primary) hypertension Category: Medical Plan: Blood pressure goal less than 130/80. Well controlled at this time. Continue metoprolol. (5) Hyperlipidemia: Code(s): E78.5 - Hyperlipidemia, unspecified Category: Medical Plan: [place] LDL goal less than 70. No recent lipid profile in our system. Will forward this note to his PCP. Continue atorvastatin and Zetia. (6) Preop cardiovascular exam: Code(s): Z01.810 - Encounter for preprocedural cardiovascular examination Category: Medical Plan: Preop for a right total knee replacement with [facility] provider [place] [facility] [place] on [place]2025. He may proceed with intermediate cardiac risk. Aspirin can be held as needed for the procedure. Hold Xarelto 48 hours prior to the procedure and plan restart of both aspirin and Xarelto as soon as cleared by surgeon to do so. Continue metoprolol, atorvastatin uninterrupted. Call/consult Cardiology if needed Plan I discussed with the patient that while the new sensation of shortness of breath upon lying down can be a sign of fluid retention, it is less concerning at present due to the absence of other symptoms like shortness of breath with activity, cough, or leg swelling. I advised the patient on what symptoms of fluid overload to monitor for and to contact us if they develop. Regarding the upcoming knee surgery, I explained that despite some narrowing seen on the coronary CTA, the patient's excellent exercise tolerance without chest pain indicates a good ability to handle the surgical stress. I informed the patient that I will provide cardiac clearance but will classify the patient's risk as intermediate to ensure the surgical team remains extra watchful. I confirmed that the pacemaker is functioning normally and that no changes to the current medication regimen are necessary. We agreed on a follow-up appointment in six months. Patient Instructions: - You are cleared to proceed with your upcoming right knee replacement surgery from a heart standpoint. - Continue taking all your current medications, including aspirin, atorvastatin, metoprolol, and Xarelto, as prescribed. - Hold aspirin and Xarelto prior to planned surgery as directed - Please contact our office if you begin to experience new or worsening symptoms of fluid retention, such as: shortness of breath when you are active, a new cough, swelling in your legs, or shortness of breath when you lie flat that makes you need to sit up. - Your pacemaker is working well. - Schedule a follow-up appointment in our office in 6 months. Patient was informed and verbally consented to the use of an ambient scribe for clinic note documentation during this visit. Visit time spent on chart review, interview, assessment, orders, documentation. Coding Level of Care Code Est Pt Level 4 (52197) Complex visit Add On G2211 Diagnoses CAD (coronary artery disease) I25.10 Paroxysmal atrial fibrillation I48.0 Pacemaker Z95.0 Hypertension I10 Hyperlipidemia E78.5 Preop cardiovascular exam Z01.810 CPT Codes Cardiac Device Check - Cardiac Device 2: [id number] Cardiac Device Check, pacemaker dual lead ([id number]) EKG - CPT: 03370-[id number], Complete ([id number]) Time Spent (min) 32
== END 2025-09-21 13:49 | disposition home or self-care (01) ==
LOC: HO.HCS 12:43
PROVIDERS: PCP Internal Medicine; Visit Provider Nurse Practitioner Family
DX: I25.10 Atherosclerotic heart disease of native coronary artery without angina pectoris (principal); I48.0 Paroxysmal atrial fibrillation; Z95.0 Presence of cardiac pacemaker; I10 Essential (primary) hypertension; E78.5 Hyperlipidemia, unspecified; Z01.810 Encounter for preprocedural cardiovascular examination
CPT/HCPCS: 93010; 93280; 99214; G2211

== ENCOUNTER → 2025-09-21 12:42 | Outpatient (BNVA) | payer OTHER, SELFPAY | PROVIDERS: PCP Internal Medicine; Visit Provider Nurse Practitioner Family | DX: Z01.810 Encounter for preprocedural cardiovascular examination (principal); Z45.010 Encounter for checking and testing of cardiac pacemaker pulse generator [battery] | CPT/HCPCS: 93005; 93280 ==

== ENCOUNTER → 2025-10-23 16:10 | Outpatient (BNV) | payer OTHER, SELFPAY | PROVIDERS: PCP Internal Medicine; Visit Provider Internal Medicine Cardiovascular Disease | DX: Z45.018 Encounter for adjustment and management of other part of cardiac pacemaker (principal) | CPT/HCPCS: 93294 ==